=== PATIENT | male | born 1945 | race Two or more races ===

== ENCOUNTER 2019-04-09 11:50 | Observation (INO) | payer MEDICARE ==
[2019-04-09] MEDS ORDERED: NS 0.9% 1000 ML** 1,000 ML IV ONE ×2 (12:07→17:36)
--- OUTSIDE RECORDS SUMMARY | 2019-04-09 12:10 | XMS REPORT | Continuity of Care Document ---
:1945 External Reference #:[id number] Author Name Dianrda Hackett Care Team Providers Name Role Phone Katina Simmons MD Primary Care Physician Unavailable Payers Date Identification Numbers Payment Provider Subscriber Policy Number: [id number] Medicare Stephen Duffy PayID: [id number] [address] [place] [address] Policy Number: [id number] [facility] Stephen Duffy PayID: [id number] [address] [place] [address] Problems Active Problems Provider Date Spinal stenosis of lumbar region Marky Claudio M.D. Onset: 07/26/2015 History of polyp of colon Nahum Norton MD Onset: 01/09/2017 Note: 2 TAS Perera Diabetes mellitus Nahum Norton MD Onset: 03/19/2000 Note: as of 2019 no insulin Normocytic normochromic anemia Nahum Norton MD Onset: 03/19/1966 Note: stable at Hct 37 in 2019 Liver function tests abnormal Nahum Norton MD Onset: 03/19/2019 Note: alk phos first 118 June 2015 Family History Date Family Member(s) Observation Comments General Heart Disease General Diabetes General Hypertension General Seizure Disorder Father due to CAD () Mother Asthma Social History Type Date Description Comments Sex Unknown Marital Status Lives With 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 Smokeless Tobacco Never Used Smokeless Tobacco ETOH Use Denies alcohol use Tobacco Use Start: Unknown Patient has never smoked Recreational Drug Use Denies Drug Use Smoking Status Reviewed: 03/19/19 Patient has never smoked Exercise Type/Frequency Exercises regularly Allergies, Adverse Reactions, Alerts Active Allergies Reaction Severity Comments Date Lactose 09/28/2018 Pravachol Dizziness, Nausea 09/28/2018 Crestor myalgia 09/28/2018 Niacin Dizziness, Nausea 09/28/2018 Lipitor myalgia 09/28/2018 Inactive Allergies NKDA 08/18/2013 Medications Active Medications SIG Qnty Indications Ordering Date Provider Glucophage 1 po bid 180tabs Unknown 1000mg Tablets Synthroid 1 by mouth every Unknown 125mcg day Tablets Glipizide ER 1.5 tabs twice a Unknown 10mg day Tablets ER 24HR Fluocinonide apply topically Unknown 0.05% once daily as Cream needed Ramipril 1 by mouth every Unknown 2.5mg Capsules day Aleve 1-2 by mouth Unknown 220mg Capsules twice a day as needed Pravastatin Sodium take one tablet Unknown 10mg by mouth every Tablets other day History Medications Amitriptyline HCL 1 po qhs for 3 150tabs Marky Srivastava, 07/13/2015 - 10mg days then 2 qhs M.D. 09/21/2015 Tablets for 3 days then 3 qhs for 3 days then 4 qhs for 3 days then 5 qhs Prednisone 3 po qam for 1 21tabs Marky Srivastava, 06/25/2015 - 10mg Tablets day, then 2 qam M.D. 07/26/2015 for 1 day, then 1 qam for 2 days Solu-Medrol in 100cc ns 1000units Marky Srivastava, 06/23/2015 - 1000mg infuse over 1 M.D. 06/26/2015 Solution Rec hour.qd for 3 days ok to leave iv in per protocol Hydrocodone-Acetaminop 1 tab PO tid prn 21tabs Cheyanne Montalvo NP 2014 - hen pain 07/26/2015 7.5-325mg Tablets Ultracet 1 - 2 by mouth 30tabs Suzanne Butt 08/04/2014 - 37.5-325mg q4-6hr as needed M.D. 06/25/2015 Tablets pain Glyburide 1 po bid 60tabs Unknown - 2.5mg Tablets 10/05/2015 Synthroid 1 po qd Unknown - 137mcg Tablets 06/23/2015 Altace take 1 capsule Unknown - 2.5mg Capsules by mouth one Unknown time daily Multi For Him 50+ 1 by mouth every Unknown - day 01/29/2016 Tablets Vitamin B-12 1 by mouth every Unknown - 1000mcg day 08/14/2015 Tablets Sub Co Q-10 1 cap po daily Unknown - 200mg Capsules 09/21/2015 Vitamin D3 Maximum 1 by mouth 5 Unknown - Strength days per week 08/14/2015 5000Unit Capsules Humulin R inject 4-6 units Unknown - 100Unit/ML on sliding scale 09/28/2018 Solution prn Tylenol as needed Unknown - 325mg Tablets 09/28/2018 Vitamin B-12 1 by mouth every Unknown - 500mcg day Unknown Tablets Sub Vitamin D3 1 by mouth every Unknown - 1000mg day 11/03/2009 Capsules Vital Signs Date Vital Result Comment 03/19/2019 10:12am Height 69.25 inches 5'9.25" Weight 148.00 lb Heart Rate 92 /min BP Systolic 116 mmHg BP Diastolic 74 mmHg O2 % BldC Oximetry 98 % BMI (Body Mass Index) 21.7 kg/m2 10/02/2018 9:54am Height 69.25 inches 5'9.25" Weight 151.00 lb Heart Rate 88 /min BP Systolic 120 mmHg BP Diastolic 84 mmHg Respiratory Rate 16 /min Body Temperature 96.4 F BMI (Body Mass Index) 22.1 kg/m2 09/29/2018 3:49pm Height 69.25 inches 5'9.25" Weight 152.00 lb Heart Rate 72 /min BP Systolic Sitting 122 mmHg BP Diastolic Sitting 78 mmHg Respiratory Rate 16 /min BMI (Body Mass Index) 22.3 kg/m2 01/31/2016 11:06am Height 69.5 inches 5'9.50" Heart Rate 84 /min BP Systolic Sitting 124 mmHg BP Diastolic Sitting 72 mmHg Respiratory Rate 16 /min 10/05/2015 10:04am Height 69.5 inches 5'9.50" Weight 158.00 lb Heart Rate 72 /min BP Systolic Sitting 126 mmHg BP Diastolic Sitting 60 mmHg Pain Level 0 BMI (Body Mass Index) 23.0 kg/m2 09/22/2015 12:13pm Height 69.5 inches 5'9.50" Heart Rate 80 /min BP Systolic Sitting 108 mmHg BP Diastolic Sitting 72 mmHg Respiratory Rate 16 /min 08/17/2015 1:20pm Height 69.5 inches 5'9.50" Weight 158.00 lb Heart Rate 66 /min BP Systolic Sitting 122 mmHg BP Diastolic Sitting 70 mmHg Pain Level 0 BMI (Body Mass Index) 23.0 kg/m2 08/15/2015 1:40pm Height 69.5 inches 5'9.50" Weight 158.00 lb Heart Rate 72 /min BP Systolic Sitting 132 mmHg BP Diastolic Sitting 88 mmHg Respiratory Rate 14 /min BMI (Body Mass Index) 23.0 kg/m2 07/26/2015 2:25pm Height 69.5 inches 5'9.50" Weight 160.00 lb Heart Rate 78 /min BP Systolic Sitting 126 mmHg BP Diastolic Sitting 80 mmHg Pain Level 3 R hip to foot BMI (Body Mass Index) 23.3 kg/m2 06/26/2015 9:54am Height 69.5 inches 5'9.50" Weight 155.00 lb Heart Rate 80 /min BP Systolic Sitting 120 mmHg BP Diastolic Sitting 72 mmHg Respiratory Rate 16 /min BMI (Body Mass Index) 22.6 kg/m2 06/23/2015 8:13am Height 69.5 inches 5'9.50" Weight 155.00 lb Heart Rate 80 /min BP Systolic Sitting 120 mmHg BP Diastolic Sitting 70 mmHg Respiratory Rate 17 /min BMI (Body Mass Index) 22.6 kg/m2 08/04/2014 8:03am Height 69.5 inches 5'9.50" Weight 155.00 lb Heart Rate 90 /min BP Systolic 135 mmHg BP Diastolic 80 mmHg BMI (Body Mass Index) 22.6 kg/m2 08/18/2013 10:08am Weight 152.00 lb Heart Rate 76 /min BP Systolic Sitting 136 mmHg BP Diastolic Sitting 84 mmHg Respiratory Rate 12 /min Results Test Date Facility Test Result H/L Range Note Laboratory test 03/21/20 [facility] Hel[place] Negative Negative 1 finding [address] [place] [address] Antigen- [phone] Stool Laboratory test 06/23/20 [facility] Point of 189 mg/dL High 74 -106 [address] [place] [address] [place] [address] [phone] Laboratory test 06/23/20 [facility] Lyme Disease Negative N Negative [address] [place] [address] [place] [address] [phone] Protein 06/23/20 [facility] Total 8.1 g/dL Abnormal 6.3 - 7.9 Electrophoresis [address] [place] [address] Protein(Pep) [place] [address] [phone] Albumin 3.7 g/dL N 3.4-4.7 Alpha-1 Globulin 0.3 g/dL N 0.1-0.3 Alpha-2 Globulin 1.0 g/dL N 0.6-1.0 Beta Globulin 1.1 g/dL N 0.7-1.2 Gamma Globulin 2.0 g/dL Abnormal 0.6-1.6 Albumin/Globulin Ratio 0.82 N Impression See Comment N 4 Laboratory test 06/23/2015 [facility] Vitamin B12 1243 pg/mL High 180-914 5 finding [address] [place] [address] [phone] Erythrocyte Sed Rate 53 mm/Hr High 0-40 Comp Metabolic Panel 06/23/2015 [facility] Sodium 133 mmol/L N 133-[address] [place] [address] [phone] Potassium 5.1 mmol/L High 3.5-5.0 Chloride 98 mmol/L Low 101-111 Co2 Carbon Dioxide 29 mmol/L N 22-32 Anion Gap 6 mmol/L N 2-11 Glucose 156 mg/dL High 70-100 Blood Urea Nitrogen 23 mg/dL N 6-24 Creatinine 0.95 mg/dL N 0.67-1.17 BUN/Creatinine Ratio 24.2 High 8-20 Calcium 9.7 mg/dL N 8.6-10.3 Total Protein 7.7 g/dL N 6.4-8.9 Albumin 4.3 g/dL N 3.2-5.2 Globulin 3.4 g/dL N 2-4 Albumin/Globulin Ratio 1.3 N 1-3 Total Bilirubin 0.30 mg/dL N 0.2-1.0 Alkaline Phosphatase 118 U/L High 34-104 Alt 41 U/L N 7-52 Ast 37 U/L N 13-39 Egfr Non- 78.6 N >60 Egfr 101.1 N >60 6 Surgical Pathology 08/19/2014 [facility] S RUN DATE: [address] 08/23/ <[place] [address] NOTE> [phone] Basic Metabolic 08/14/2013 [facility] Sodium 136 mmol/L 133- [address] [place] [address] [phone] Potassium 4.1 mmol/L 3.5-5.0 Chloride 100 mmol/L Low 101-111 Co2 Carbon Dioxide 30.0 mmol/L 22-32 Anion Gap 6.0 mmol/L 2-11 Glucose 101 mg/dL High 70-100 Blood Urea Nitrogen 19 mg/dL 6-24 Creatinine 0.90 mg/dL 0.50-1.40 BUN/Creatinine Ratio 21.1 High 8-20 Calcium 9.8 mg/dL 8.1-9.9 Egfr Non- 84.2 >60 Egfr 108.2 >60 8 Lipid Profile 08/14/2013 [facility] Triglycerides 99 mg/dL 40 -200 (Trig/Chol/HDL) [address] [place] [address] [phone] Cholesterol 213 mg/dL High Less than 200 HDL Cholesterol 43 mg/dL 40-60 9 Cholesterol/HDL Ratio 5.0 Average High 1-4.44 LDL Cholesterol 150.2 High Less Than 100 10 Laboratory test 08/14/2013 [facility] Creatine Kinase 149 U/L 0-[address] [place] [address] [phone] Hemoglobin A1c 6.8 % High Less than 6.0 11 Vitamin B12 431 pg/mL 180-914 TSH (Thyroid Stimulating Horm) 3.60 miu/mL 0.34-5.60 Lyme Disease Serology Negative Negative 12 Vitamin D 1,25-Dihydroxy 32 pg/mL 18-64 13 1 Test Performed by: [facility] [address] [place] [address] 2 Histology Technician: MEGAN GAMBLE 3 Serologic response to B. burgdorferi infection is not detected, but cannot rule out early infection during which low or undetectable antibody levels to B. burgdorferi may be present. If clinically indicated, a new serum specimen should be submitted in 7-14 days. Test Performed by: [facility] [place] [address] Clearing Tub Worker: Mark Figueroa II, M.D., Ph.D. 4 RESULT: Polyclonal hypergammaglobulinemia Test Performed by: [place] [address] Clearing Tub Worker: Mark Figueroa II, M.D., Ph.D. 5 Normal Range 180 to 914 Indeterminate Range 145 to 180 Deficient Range <145 6 Because ethnic data is not always readily available, this report includes an eGFR for both -Americans and non- Americans. The National Kidney Disease Education Program (NKDEP) does not endorse the use of the MDRD equation for patients that are not between the ages of 18 and 70, are , have extremes of body size, muscle mass, or nutritional status, or are non- or non-. According to the National Kidney Foundation, irrespective of diagnosis, the stage of the disease is based on the level of kidney function: Stage Description GFR(mL/min/1.73 m(2)) 1 Kidney damage with normal or decreased GFR 90 2 Kidney damage with mild decrease in GFR 60-89 3 Moderate decrease in GFR 30-59 4 Severe decrease in GFR 15-29 5 Kidney failure <15 (or dialysis) 7 RUN DATE: 08/23/14 [facility] LAB LIVE PAGE 1 RUN TIME: [address] [place] [address] Specimen Inquiry Name: STEPHEN DUFFY : [address]: Suzanne Butt MD Acct: [id number] Unit: [id number] AGE: 68 Location: [facility] Re08/19/14 SEX: M Status: REG SD SPEC: [id number] ANGIE: 08/19/14- SUBM DR: Suzanne Butt MD REQ: [id number] RECD: 08/19/14 STATUS: SOUT _ ORDERED: S-100, LEVEL IV FINAL DIAGNOSIS Right index finger mass, excision: Neurofibroma. COMMENTS: An immunohistochemical stain for S100 was performed with appropriate controls and supports the above rendered diagnosis. PRE-OPERATIVE DIAGNOSIS Right index finger mass. GROSS DESCRIPTION The specimen is received in formalin labeled Stephen Duffy, Right Index Finger Mass, and consists of a 1.1 x 0.5 x 0.4 cm. padilla-white rubbery, irregular to ovoid portion of soft tissue. Submitted entirely, one cassette. Signed (signature on file) Mario Veliz MD 1332 END OF REPORT * ML=Testing performed at Main Lab DEPARTMENT OF PATHOLOGY, [address] [place] [address] Mario Veliz M.D. Director [facility] # [id number] 8 Because ethnic data is not always readily available, this report includes an eGFR for both -Americans and non- Americans. The National Kidney Disease Education Program (NKDEP) does not endorse the use of the MDRD equation for patients that are not between the ages of 18 and 70, are , have extremes of body size, muscle mass, or nutritional status, or are non- or non-. According to the National Kidney Foundation, irrespective of diagnosis, the stage of the disease is based on the level of kidney function: Stage Description GFR(mL/min/1.73 m(2)) 1 Kidney damage with normal or decreased GFR 90 2 Kidney damage with mild decrease in GFR 60-89 3 Moderate decrease in GFR 30-59 4 Severe decrease in GFR 15-29 5 Kidney failure <15 (or dialysis) 9 HDL Interpretation: Undesirable: High Risk: Less than 40 mg/dL Desirable: Low Risk: Greater than 60 mg/dL 10 LDL Interpretation: Low Risk Optimal Level: LDL Less than 100 mg/dL Near or Above Optimal: LDL 100-129 mg/dL Borderline High Risk: LDL 130-159 mg/dL High Risk: LDL 160-189 mg/dL Very High Risk: LDL Greater than 189 mg/dL 11 Therapeutic target for the treatment of diabetes Mellitus patients is <7% HBA1C, and in selective patients <6.0%.Please refer to [place] [employer] Diabetic care guidelines for further information. 12 Serologic response to B. burgdorferi infection is not detected, but cannot rule out early infection during which low or undetectable antibody levels to B. burgdorferi may be present. If clinically indicated, a new serum specimen should be submitted in 7-14 days. Test Performed by: [place] [address] Clearing Tub Worker: Steven Strong III, M.D. 13 Test Performed by: [address] [address] Clearing Tub Worker: Steven Strong III, M.D. Procedures Date Code Description Status 01/09/2017 54653869 Colonoscopy Completed 08/19/2014 92379 Excision Tendon Sheath Ganglion /Or Joint Capsule Hand Completed Or Finger 08/19/2014 07106 Excision Tumor,Soft Tissue Of Hand Or Finger Subq Completed 06/19/2012 32457 ECHO Stress Test Incl Perf Contiuous ekg Monitoring Completed W/Phys Superv 01/31/2006 33434 ECHO/Stress Completed 01/31/2006 22647 ECHO/Stress Completed 01/31/2006 10950 Stress Test Completed Encounters Type Date Location Provider Dx Diagnosis Office Visit 03/19/2019 [facility] Gastroenterology Nahum Calderon R10.13 Epigastric pain 10:00a MD Errol Z86.010 Personal history of colonic polyps R94.5 Abnormal results of liver function studies Office Visit 10/02/2018 10:00a Surgical Robbie Ferrer, R10.31 Right lower [facility], FACS quadrant pain Office Visit 09/29/2018 3:30p [facility] Gloria Osborn M54.16 Radiculopathy, [facility] S[facility]astava M.D. lumbar region M48.061 Spinal stenosis, lumbar region without neurogenic pradeep Office Visit 01/31/2016 [facility] Gloria Osborn M54.16 Radiculopathy, 10:45a [facility] S[facility]ast[facility] M.D. lumbar region Office Visit 10/05/2015 Neurosurgery Marky M48.06 Spinal stenosis, 10:00a [facility] Claudio M.D. lumbar region Office Visit 09/22/2015 [facility] Gloria Osborn M54.16 Radiculopathy, 12:00p [facility] Srivastava M.D. lumbar region Office Visit 08/17/2015 Neurosurgery Marky M48.06 Spinal stenosis, 1:15p [facility] Claudio M.D. lumbar region Office Visit 08/15/2015 Lars Osborn M48.06 Spinal stenosis, 1:30p [facility] Srivastava M.D. lumbar region M54.16 Radiculopathy, lumbar region Office Visit 07/26/2015 Neurosurgery Marky Claudio M48.06 Spinal stenosis , 2:30p [facility] lumbar region Office Visit 06/26/2015 Lars Osborn 724.4 Neuritis Or 9:00a [facility] Srivastava M.D. Radiculitis Thoracic Or Lumbosacral Unspec 357.2 Polyneuropathy In Diabetes Office Visit 06/23/2015 8:00a Lars Osborn 724.4 Neuritis Or [facility] S[facility]ast[facility] M.D. 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 Shouldr Connective & Soft Tissue 727.03 Trigger Finger Acquired Office Visit 08/18/2013 [facility] Marky Osborn 346.10 Migraine Common W/O 10:00a Neurologic Светлана Srivastava Intractable W/O Status [facility] Migrainosus Office Visit 06/19/2012 [facility] ECHO 794.31 Electrocardiogram 8:15a Cardiology Schedule (ECG) (EKG) Abnormal 786.09 Dyspnea & Respiratory Abnormalities Other Plan of Treatment Future Appointment(s):04/05/2019 9:00 am - Nurse Visit IC at [facility]04/02/2019 9:30 am - Nurse Visit IC at [facility]2018 1:30 pm - Marky Srivastava M.D. at [facility]03/19 - Nahum Norton, MDR10.13 Epigastric painZ86.010 Personal history of colonic hsgkfpR62.5 Abnormal results of liver function studies
--- OUTSIDE RECORDS SUMMARY | 2019-04-09 12:10 | XMS REPORT | Continuity of Care Document ---
:1945 External Reference #:[id number] Author Name Shreya Bailey Care Team Providers Name Role Phone Katina Simmons MD Primary Care Physician Unavailable Payers Date Identification Numbers Payment Provider Subscriber Policy Number: [id number] Medicare Stephen Duffy PayID: [id number] [address] [place] [address] Policy Number: [id number] [facility] Stephen Duffy PayID: [id number] [address] [place] [address] Problems Active Problems Provider Date Difficulty breathing [facility] Schedule Onset: 06/19/2012 Electrocardiogram abnormal [facility] Schedule Onset: 06/19/2012 Spinal stenosis of lumbar region Marky Claudio M.D. 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 [...] Test Result H/L Range Note Laboratory test 06/23/20 [facility] Point of 189 mg/dL High 74 -106 1 finding [address] [place] [address] [phone] Laboratory test 06/23/20 [facility] Lyme Disease Negative N Negative 2 finding [address] [place] [address] [phone] Protein 06/23/20 [facility] Total 8.1 g/dL Abnormal 6.3 - 7.9 Electrophoresis [address] Protein(Pep) [place], [place] [id number] [phone] Albumin 3.7 g/dL N 3.4-4.7 Alpha-1 Globulin 0.3 g/dL N 0.1-0.3 Alpha-2 Globulin 1.0 g/dL N 0.6-1.0 Beta Globulin 1.1 g/dL N 0.7-1.2 Gamma Globulin 2.0 g/dL Abnormal 0.6-1.6 Albumin/Globulin Ratio 0.82 N Impression See Comment N 3 Laboratory test 06/23/2015 [facility] Vitamin B12 1243 pg/mL High 180-[address] [place], [place] [id number] [phone] Erythrocyte Sed Rate 53 mm/Hr High 0-40 Comp Metabolic Panel 06/23/2015 [facility] Sodium 133 mmol/L N 133-145 [address] [place] [address] [phone] Potassium 5.1 mmol/L High 3.5-5.0 Chloride 98 [...] 78.6 N >60 Egfr 101.1 N >60 5 Surgical Pathology 08/19/2014 [facility] S RUN DATE: [address] DRIVE 08/23/ <[place] [address] NOTE> [phone] Basic Metabolic 08/14/2013 [facility] Sodium 136 mmol/L 133- 145 Panel [address] [place] [address] [phone] Potassium 4.1 mmol/L 3.5-5.0 Chloride 100 mmol/L Low 101-111 Co2 Carbon Dioxide 30.0 mmol/L 22-32 Anion Gap 6.0 mmol/L 2-11 Glucose 101 mg/dL High 70-100 Blood Urea Nitrogen 19 mg/dL 6-24 Creatinine 0.90 mg/dL 0.50-1.40 BUN/Creatinine Ratio 21.1 High 8-20 Calcium 9.8 mg/dL 8.1-9.9 Egfr Non- 84.2 >60 Egfr 108.2 >60 7 Lipid Profile 08/14/2013 [facility] Triglycerides 99 mg/dL 40 -200 (Trig/Chol/HDL) [address] [place] [address] [phone] Cholesterol 213 mg/dL High Less than 200 HDL Cholesterol 43 mg/dL 40-60 8 Cholesterol/HDL Ratio 5.0 Average High 1-4.44 LDL Cholesterol 150.2 High Less Than 100 9 Laboratory test 08/14/2013 [facility] Creatine Kinase 149 U/L 0-200 finding [address] [place] [address] [phone] Hemoglobin A1c 6.8 % High Less than 6.0 10 Vitamin B12 431 pg/mL 180-914 TSH (Thyroid Stimulating Horm) 3.60 miu/mL 0.34-5.60 Lyme Disease Serology Negative Negative 11 Vitamin D 1,25-Dihydroxy 32 pg/mL 18-64 12 1 Installation And Service Technician: MEGAN GAMBLE 2 Serologic response to B. burgdorferi infection is not detected, but cannot rule out early infection during which low or undetectable antibody levels to B. burgdorferi may be present. If clinically indicated, a new serum specimen should be submitted in 7-14 days. Test Performed by: [facility] [address] [place] [address] Account Development Manager: Mark Figueroa II, M.D., Ph.D. 3 RESULT: Polyclonal hypergammaglobulinemia Test Performed by: [address] [address] Account Development Manager: Mark Figueroa II, M.D., Ph.D. 4 Normal Range 180 to 914 Indeterminate Range 145 to 180 Deficient Range <145 5 Because ethnic data is not always readily [...] 15-29 5 Kidney failure <15 (or dialysis) 6 RUN DATE: 08/23/14 [facility] LAB LIVE PAGE 1 RUN TIME: [address] [place] [address] Specimen Inquiry Name: DUFFYSTEPHEN Leilani : [address]: Suzanne Butt MD Acct: [id number] Unit: [id number] AGE: 68 Location: [facility] Re08/19/14 SEX: M Status: REG [facility] SPEC: [id number] ANGIE: 08/19/14- SUBM DR: Suzanne Butt MD REQ: [id number] RECD: [id number]/19/14-8498 STATUS: SOUT _ ORDERED: S-100, LEVEL IV [...] performed at Main Lab DEPARTMENT OF PATHOLOGY, [address] [place] [address] Mario Veliz M.D. Director [facility] # [id number] 7 Because ethnic data is not always readily [...] 15-29 5 Kidney failure <15 (or dialysis) 8 HDL Interpretation: Undesirable: High Risk: Less than 40 mg/dL Desirable: Low Risk: Greater than 60 mg/dL 9 LDL Interpretation: Low Risk Optimal Level: LDL Less than 100 mg/dL Near or Above Optimal: LDL 100-129 mg/dL Borderline High Risk: LDL 130-159 mg/dL High Risk: LDL 160-189 mg/dL Very High Risk: LDL Greater than 189 mg/dL 10 Therapeutic target for the treatment of diabetes Mellitus patients is <7% HBA1C, and in selective patients <6.0%.Please refer to [place] [employer] Diabetic care guidelines for further information. 11 Serologic response to B. burgdorferi infection is not detected, but cannot rule out early infection during which low or undetectable antibody levels to B. burgdorferi may be present. If clinically indicated, a new serum specimen should be submitted in 7-14 days. Test Performed by: [place] [address] Account Development Manager: Steven Strong III, M.D. 12 Test Performed by: [place] [address] Account Development Manager: Steven Strong III, M.D. Procedures Date Code Description Status 08/19/2014 74124 Excision Tendon Sheath Ganglion /Or Joint Capsule Hand Or Completed Finger 08/19/2014 63781 Excision Tumor,Soft Tissue Of Hand Or Finger Subq Completed 06/19/2012 42518 ECHO Stress Test Incl Perf Contiuous ekg Monitoring W/Phys Completed Superv 01/31/2006 78247 ECHO/Stress Completed 01/31/2006 58178 ECHO/Stress Completed 01/31/2006 40625 Stress Test Completed Encounters Type Date Location Provider Dx Diagnosis Office Visit 10/02/2018 [facility] Robbie Ferrer, R10.31 Right lower 10:00a Of [facility] ALDRICH, FACS quadrant pain Office Visit 09/29/2018 [facility]born M54.16 Radiculopathy, 3:30p Services Of [facility] Miguel Srivastava M.D. lumbar region M48.061 Spinal stenosis, lumbar region without neurogenic pradeep Office Visit 01/31/2016 [facility] M54.16 Radiculopathy, 10:45a Services Of [facility] Srivastava M.D. lumbar region Office Visit 10/05/2015 [facility] Marky M48.06 Spinal stenosis, 10:00a Services Of [facility] Claudio M.D. lumbar region Office Visit 09/22/2015 [facility] Marky Osborn M54.16 Radiculopathy, 12:00p Services Of [facility] Srivastava M.D. lumbar region Office Visit 08/17/2015 Neurosurgery Marky M48.06 Spinal stenosis, 1:15p Services Of [facility] Claudio M.D. lumbar region Office Visit 08/15/2015 [facility] Marky Osborn M48.06 Spinal stenosis, 1:30p Services Of José Miguel Srivastava M.D. lumbar region M54.16 Radiculopathy, lumbar region Office Visit 07/26/2015 Neurosurgery Marky Claudio M48.06 Spinal stenosis , 2:30p Services Of [facility] Sotomayor lumbar region Office Visit 06/26/2015 [facility] 724.4 Neuritis Or 9:00a Services Of [facility] Miguel Srivastava M.D. Radiculitis Thoracic Or Lumbosacral Unspec 357.2 Polyneuropathy In Diabetes Office Visit 06/23/2015 8:00a [facility] Marky Osborn 724.4 Neuritis Or Services Of José Miguel Srivastava M.D. Radiculitis Thoracic Or Lumbosacral Unspec 356.8 Neuropathy Other Spec Idiopathic Peripheral 357.2 Polyneuropathy In Diabetes Office Visit 08/04/2014 8:00a Orthopedic Suzanne Butt, 215.2 Benign Neoplasm Services Of [facility] Soft Tissue 727.03 Trigger Finger Acquired Office Visit 08/18/2013 [facility] Osborn 346.10 Migraine Common W/O 10:00a Neurologic [facility] Srivastava Intractable W/O Status Services Of [facility] Migrainosus Office Visit 06/19/2012 [facility] ECHO 794.31 Electrocardiogram 8:15a Cardiology Schedule (ECG) (EKG) Abnormal 786.09 Dyspnea & Respiratory Abnormalities Other Plan of Treatment Future Appointment(s):11/02/2019 1:30 pm - Marky Srivastava M.D. at [facility]03/19/2019 - Nahum Norton, MDR10.13 Epigastric painZ86.010 Personal history of colonic polyps
[2019-04-09] MEDS ORDERED: Nitroglycerin TAB 0.4 MG* 0.4 MG TAB SL ONE (12:25)
--- NOTE | 2019-04-09 12:30 | ED ---
HPI Chest Pain - HPI Summary HPI Summary: Pt is a 73 y/o M presenting to the ED with a chief complaint of chest pain initially onset 1630 last night, 04/09/19, in the mid-chest area that radiated up to the front of his neck, described as sharp. He also reports shortness of breath, and chest pain with deep breaths. He saw Dr. Norton this morning who recommended coming into the ED for cardiac workup. He denies hx of MA, blood clot, and recent travel. He is a diabetic and drinks alcohol rarely. - History of Current Complaint Time Seen by Provider: 04/09/19 12:07 Hx Obtained From: Patient Onset/Duration: Started Hours Ago, Still Present Timing: Intermittent, Lasting Hours Initial Severity: Moderate Current Severity: Moderate Chest Pain Location: Mid Sternal Chest Pain Radiates: Yes Chest Pain Radiates To:: Neck Character: Sharp/Stabbing Aggravating Factor(s): Deep Breaths Alleviating Factor(s): Nothing Associated Signs and Symptoms: Positive: Chest Pain, Shortness of Breath - Allergy/Home Medications Allergies/Adverse Reactions: Allergies Allergy/AdvReac Type Severity Reaction Status Date / Time rosuvastatin [From Crestor] Allergy Severe See Comment Verified 04/09/19 12:30 niacin Allergy Dizziness Verified 04/09/19 12:30 pravastatin Allergy Muscle Ache Verified 04/09/19 12:30 Home Medications: Home Medications Levothyroxine TAB* [Synthroid TAB*] 125 mcg PO DAILY 04/09/19 [History Confirmed 04/09/19] Multivitamins/Minerals TAB* [Theragran/minerals TAB*] 1 tab PO DAILY 04/09/19 [ History Confirmed 04/09/19] Pravastatin (NF) [Pravachol (NF)] 10 mg PO EVERY OTHER DAY 04/09/19 [History Confirmed 04/09/19] Ramipril CAP* [Altace CAP*] 2.5 mg PO DAILY 04/09/19 [History Confirmed 04/09/19 ] metFORMIN* [Glucophage 1000 MG TAB *] 1,000 mg PO BID 04/09/19 [History Confirmed 04/09/19] PMH/Surg Hx/FS Hx/Imm Hx Previously Healthy: Yes Endocrine/Hematology History: Reports: Hx Diabetes, Hx Thyroid Disease - HYPO Denies: Other Endocrine/Hematological Disorders - blood clot Cardiovascular History: Reports: Hx Hypertension - MILD- ON ALTACE Denies: Hx Myocardial Infarction, Hx Pacemaker/ICD Respiratory History: Denies: Hx Asthma History: Denies: Hx Renal Disease Sensory History: Reports: Hx Contacts or Glasses Denies: Hx Hearing Aid Opthamlomology History: Reports: Hx Contacts or Glasses Neurological History: Reports: Hx Headaches - OCC Psychiatric History: Denies: Hx Panic Disorder - Surgical History Surgery Procedure, Year, and Place: CYST REMOVED; Hx Anesthesia Reactions: No Infectious Disease History: Denies: Traveled Outside the [place] in Last 30 Days - Family History Known Family History: Negative: Renal Disease - Social History Alcohol Use: Rare Hx Substance Use: No Substance Use Type: Reports: None Hx Tobacco Use: No Smoking Status (MU): Never Smoked Tobacco Review of Systems Positive: Chest Pain Positive: Shortness Of Breath All Other Systems Reviewed And Are Negative: Yes Physical Exam - Summary Physical Exam Summary: GENERAL: Patient is a well-developed and nourished M who is lying comfortable in the stretcher. Patient is not in any acute respiratory distress. HEAD AND FACE: Normocephalic EYES: PERRLA, EOMI x 2. EARS: Hearing grossly intact. MOUTH: Oropharynx within normal limits. NECK: Supple, trachea is midline, no adenopathy, no JVD, no carotid bruit. CHEST: Symmetric, no tenderness at palpation LUNGS: Clear to auscultation bilaterally. No wheezing or crackles. CVS: Regular rate and rhythm, S1 and S2 present, no murmurs or gallops appreciated. ABDOMEN: Soft, non-tender. Bowel sounds are normal. No abnormal abdominal pulsations. EXTREMITIES: Full ROM in all major joints, no edema, no cyanosis or clubbing. NEURO: Alert and oriented x 3. No acute neurological deficits. Speech is normal and follows commands. SKIN: Dry and warm Triage Information Reviewed: Yes Vital Signs Reviewed: Yes Diagnostics - Laboratory Result Diagrams: 04/09/19 12:48 04/09/19 12:48 Lab Statement: Any lab studies that have been ordered have been reviewed, and results considered in the medical decision making process. - Radiology CXR Radiology Interpretation Completed By: Radiologist Summary of Radiographic Findings: No active cardiopulmonary disease. ED physician has reviewed this report. - CT CTA Chest/Thorax CT Interpretation Completed By: Radiologist Summary of CT Findings: 1. No pulmonary arterial filling defect to suggest PE. 2. 0.3cm nodule of the R upper lobe, the recommendations for f/u and management of an incidentally detected pulmonary nodule <6mm in size in a patient w/o hx of malignancy include no follow-up for a low risk patient or optional follow-up CT in 12 months for a high risk patient. 3. Coronary artery disease. ED physician has reviewed this report. - EKG 1220 Cardiac Rate: Tachycardia - 106bpm EKG Rhythm: Sinus Tachycardia ST Segment: Non-Specific Ectopy: None Summary of EKG Findings: EKG at 1220 shows sinus tachycardia at 106bpm with a prolonged NM interval and no ST elevation. Re-Evaluation - Re-Evaluation 1st re-eval Re-Evaluation Time: 12:54 Change: Improved Comment: Per RN, the pt had relief with the nitroglycerin given. He states the tightness in his neck was relieved. 2nd re-eval Re-Evaluation Time: 14:42 Change: Unchanged Comment: I discussed the results of the CTA chest/thorax with the patient and his , and informed him that I would like to admit him. I answered their questions, and he is stable and agreeable with this plan. Chest Pain Course/Dx - Course Course Of Treatment: Pt is a 73 y/o M presenting to the ED with a chief complaint of chest pain initially onset 1630 last night, 04/09/19, in the mid- chest area that radiated up to the front of his neck, described as sharp. He also reports shortness of breath, and chest pain with deep breaths. He denies hx of MA, blood clot, and recent travel. He is a diabetic and drinks alcohol rarely. EKG at 1220 shows sinus tachycardia at 106bpm with a prolonged NM interval and no ST elevation. CXR shows no active cardiopulmonary disease. Pt s hematology shows RBC of 3.75, Hgb of 11.7, and Hct of 35. His coagulation results show an INR of 1.10 and D-Dimer of 413. His chemistry shows a Sodium level of 133, Chloride of 100, BUN/Creatinine ratio of 24.4, Magnesium of 1.5, Alkaline Phosphate of 136, CRP high sens of 142, Globulin of 4.2, and Albumin/ Globulin ratio of 0.9. His troponin is 0.00 and lactic acid is 1.2. CTA Chest/ Thorax shows: 1. No pulmonary arterial filling defect to suggest PE. 2. 0.3cm nodule of the R upper lobe, the recommendations for f/u and management of an incidentally detected pulmonary nodule <6mm in size in a patient w/o hx of malignancy include no follow-up for a low risk patient or optional follow-up CT in 12 months for a high risk patient. 3. Coronary artery disease. I discussed the incidental finding of nodule with patient, and advised admission. He is stable and agreeable with this plan. I spoke with Dr. Leone at 1440 who will be admitting the pt to [facility] with dx of chest pain and pulmonary nodule. - Diagnoses Provider Diagnoses: Chest pain, Pulmonary nodule Discharge - Sign-Out/Discharge Documenting (check all that apply): Patient Departure - Discharge Plan Condition: Stable Disposition: ADMITTED TO [facility] Referrals: Katina Simmons MD [Primary Care Provider] - - Billing Disposition and Condition Condition: STABLE Disposition: Admitted to [facility] - Attestation Statements Document Initiated by Scribe: Yes Documenting Scribe: Pam Davis Provider For Whom Roseannee is Documenting (Include Credential): Brant Killian MD. Scribe Attestation: I, Pam Davis, dorieibed for Brant Killian MD. on 04/09/19 at 1743. Scribe Documentation Reviewed: Yes Provider Attestation: The documentation as recorded by the dorieibePam accurately reflects the service I personally performed and the decisions made by me, Georges Killian MD. Status of Scribe Document: Viewed Consult Consult: 1310 - I spoke with Dr. Leone who will be accepting the pt to [facility] with dx including chest pain and pulmonary nodule.
[2019-04-09 13:12] LABS: Activated Partial Thrombo Time 32.3 seconds (26.0-38.0); INR 1.1 (0.82-1.09)
[2019-04-09 13:15] LABS: ABS Basophils 0.1 10^3/ul (0-0.2); ABS Eosinophils 0.2 10^3/ul (0-0.6); ABS Lymphocytes 1.5 10^3/ul (1.0-4.8); ABS Monocytes 1.2 10^3/ul (0-0.8); ABS Neutrophils 5.4 10^3/ul (1.5-7.7); Eosinophil % 1.9 %; Hematocrit 35 % (42-52); Hemoglobin 11.7 g/dL (14.0-18.0); Lymphocyte % 18.2 %; Mean Corpuscular HGB Conc 33 g/dL (31-36); Mean Corpuscular Hemoglobin 31 pg (27-31); Mean Corpuscular Volume 94 fL (80-94); Mean Platelet Volume 9.6 fL (7.4-10.4); Platelet Count 173 10^3/uL (150-450); Red Blood Count 3.75 10^6 /uL (4.18-5.48); Red Cell Distribution Width 14 % (10-15); White Blood Count 8.3 10^3/uL (3.5-10.8)
[2019-04-09 13:43] LABS: Albumin 3.7 g/dL (3.2-5.2); Albumin/Globulin Ratio 0.9 (1-3); BUN/Creatinine Ratio 24.4 (8-20); Calcium 9.5 mg/dL (8.6-10.3); EGFR African American 105.5 (>60); EGFR Non-African American 87.2 (>60); Globulin 4.2 g/dL (2-4); Magnesium 1.5 mg/dL (1.9-2.7); Potassium 4.6 mmol/L (3.5-5.0); Total Bilirubin 0.7 mg/dL (0.2-1.0); Total Protein 7.9 g/dL (6.4-8.9)
[2019-04-09] MEDS ORDERED: Iodixanol* (CONTRAST) 320 MG/ML 100 ML SDV IV ONE (14:03)
[2019-04-09] MEDS ORDERED: Aspirin 81 mg CHEW TAB* 81 MG TAB.CHEW PO ONE (14:41)
[2019-04-09 14:47] LABS: Urine Appearance Cloudy; Urine Bilirubin Negative (Negative); Urine Blood Negative (Negative); Urine Color Yellow; Urine Glucose 1+(50 mg/dL) (Negative); Urine Ketones Negative (Negative); Urine Nitrite Negative (Negative); Urine Protein Negative (Negative); Urine Specific Gravity 1.013 (1.010-1.030); Urine Urobilinogen Negative (Negative)
[2019-04-09] MEDS ORDERED: Magnesium Sulfate 2 GM IV* 2 GM/50 ML BAG IVPB ONE (15:32)
[2019-04-09] MEDS ORDERED: Acetaminophen TAB* 325 MG PO PRN (16:08)
[2019-04-09] MEDS ORDERED: Enoxaparin(*) 40 MG/0.4 ML SYR SUBCUT SCH (17:00)
[2019-04-09] MEDS ORDERED: Dextrose 50% Syringe 50 ML* 25 GM/50 ML SYRINGE IV PUSH PRN ×2 (17:12→20:09)
[2019-04-09] MEDS ORDERED: Famotidine TAB* 20 MG PO PRN (17:19)
[2019-04-09] MEDS ORDERED: Insulin LISPRO* 1 UNITS UNIT SUBCUT SCH (18:00)
--- NOTE | 2019-04-09 19:49 | HP ---
CC: Dr. Katina Simmons * HISTORY AND PHYSICAL: DATE OF ADMISSION: 04/09/19 PRIMARY CARE PHYSICIAN: Katina Simmons MD HEALTHCARE PROXY: Rashida Villasenor (), phone number is [phone]. CODE STATUS: Full code. CHIEF COMPLAINT: One day of chest pain radiating to neck. HISTORY OF PRESENT ILLNESS: Mr. Villasenor is a 73-year-old man with longstanding diabetes, hypertension, hypothyroidism, and recent history of reflux who is presenting from Dr. Norton's office for chest pain for 1 day. He reports that he was in his usual state of health until approximately 4:30 p.m. on day prior to admission when he began experiencing a substernal chest pain that was sharp and radiated to his neck. It was nonexertional, but worse on taking a deep breath. Over course of the evening and night, it progressed from a sharp pain to a squeezing pain, and while he was in his bed, he noted that it was worse on moving around in his bed. This chest pain was associated with shortness of breath, although the patient denied cough, diaphoresis. When the patient's chest pain started yesterday, he notes that it did improve with kefir, Tums, and Tylenol. He does report a recent history of epigastric burning for the last 4 weeks, which is why he had an appointment with Dr. Norton on morning of presentation. He does think he had a subjective fever on day prior to presentation, although he did not measure his temperature at home. He denies recent weight loss, nausea, vomiting, constipation, diarrhea, abdominal pain, dysuria, or focal weakness, numbness or tingling. Of note, the patient had been following with Dr. Ragland in the past and was recently referred to see Dr. Ragland again for known history of first-degree heart block. He recently had a Holter monitor study, but does not know results. He has also been following with Dr. Norton for history of NAFLD. In the emergency room, he was noted to have known first-degree heart block on EKG. He was given nitroglycerin and experienced improvement in his chest pain. He was also loaded with aspirin. Given the pleuritic nature of his chest pain with elevated D-dimer, a CTPE was ordered which was unremarkable except for new 0.3 cm pulmonary nodule. The CT did note coronary artery disease. The hospitalist service was consulted to admit for myocardial infarction rule out. PAST MEDICAL HISTORY: 1. Diabetes diagnosed in the early , last A1c 7.8%. 2. Hypothyroidism, also diagnosed in the . 3. Hypertension. 4. Proctalgia fugax. 5. 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 6. Excision of right fifth digit finger mass with injection for trigger finger. MEDICATIONS: Home medication list: 1. Metformin 1 g twice a day. 2. Levothyroxine 125 mcg daily. 3. Glipizide 15 mg twice a day. 4. Pravastatin 10 mg every other day. 5. Ramipril 2.5 mg daily. 6. Multivitamin daily. ALLERGIES: No known drug allergies. The patient does report myopathies with higher doses of statins as well as LFT abnormalities. He also has experienced flushing with niacin. FAMILY HISTORY: Two of the patient's brothers have diabetes, one of his brothers at the age of 73 from myocardial infarction. 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 He is a never smoker. He has rare alcohol use. Never illicit drugs. He lives with his who is also a retired helpdesk specialist. REVIEW OF SYSTEMS: A complete 10-point review of systems was performed and pertinent positives and negatives are listed in the HPI. PHYSICAL EXAMINATION GENERAL: He is a well-appearing man, in no acute distress, interactive and pleasant. VITAL SIGNS: Afebrile, heart rate 90s, respiratory rate 22, blood pressure 115/ 70, SaO2 98% on room air. HEENT: Moist mucous membranes. OP clear. NECK: No JVD. Full range of motion. Intact without pain. Supple. LUNGS: Clear to auscultation bilaterally. HEART: Regular rate and rhythm. No murmurs, gallops, rubs. ABDOMEN: Soft, nontender, nondistended. No hepatomegaly. EXTREMITIES: Warm and well perfused without evidence of edema. SKIN: Warm and dry. DIAGNOSTIC STUDIES/LAB DATA: Hemoglobin 11.7, normocytic at baseline. INR 1.1. Sodium 133, near baseline. Magnesium 1.5. CRP 75. BNP 142. UA clear. Chest x-ray with no active cardiopulmonary disease. Chest CTA with no pulmonary arterial filling defect to suggest PE. A 0.3 cm nodule in the right upper lobe. Recommendations for followup and management of incidentally detected pulmonary nodule with a followup in 12 months. Coronary artery disease. EKG with sinus tachycardia, 112, CA interval prolonged to 217, repolarization abnormality of V2 through 4, T wave flattening of III and aVF, unchanged from prior as noted in clinic earlier this year. ASSESSMENT AND PLAN: Mr. Villasenor is a 73-year-old man with diabetes, hypertension, hypothyroidism, and family history of cardiac disease who presents with atypical chest pain radiating to his jaw that was initially pleuritic, then positional, and improved with Tums and kefir. 1. Chest pain. Coronary artery disease is high on differential given significant risk factors. The patient will be ruled out for myocardial infarction. Initial 2 troponins are negative, we will order a third for tonight. The patient understands that TTE and stress test cannot happen until Friday. We will monitor on telemetry overnight, recheck an A1c and TSH, and continue to monitor symptoms closely. Pulmonary embolism has been ruled out. Of note, symptoms have improved with nitroglycerin, but also with GI medications. 2. Diabetes. We will hold home metformin and glipizide and continue insulin sliding scale. 3. Hypertension. Continue home ramipril 2.5 mg daily. 4. Primary prevention coronary artery disease. Continue home pravastatin every other day. Initiate aspirin 81 mg. 5. Hypothyroidism. Continue home levothyroxine 125 mcg daily. Check TSH. 6. Reflux. We will trial the patient on H2 lyndsey as needed. 7. DVT prophylaxis. Initiate Lovenox 40 mg subcu daily. 8. Full code. TIME SPENT: Approximately 60 minutes spent on admission of this patient, more than half of which was spent at bedside for interview and exam. [id number]/CPS #: [id number] [facility]
[2019-04-09 20:42] LABS: TSH (Thyroid Stimulating Horm) 0.35 mcIU/mL (0.34-5.60)
[2019-04-09 20:53] LABS: Folate 11.41 ng/mL (>3.99)
[2019-04-09] MEDS: Insulin LISPRO* 1 UNITS UNIT SUBCUT SCH (21:01)
[2019-04-10 03:54] VITALS: BP 121/79
[2019-04-10 05:24] LABS: Hematocrit 32 % (42-52); Hemoglobin 10.7 g/dL (14.0-18.0); Mean Corpuscular HGB Conc 33 g/dL (31-36); Mean Corpuscular Hemoglobin 31 pg (27-31); Mean Corpuscular Volume 93 fL (80-94); Mean Platelet Volume 9.5 fL (7.4-10.4); Platelet Count 164 10^3/uL (150-450); Red Blood Count 3.45 10^6 /uL (4.18-5.48); Red Cell Distribution Width 14 % (10-15); White Blood Count 6.9 10^3/uL (3.5-10.8)
[2019-04-10 05:43] LABS: Calcium 8.9 mg/dL (8.6-10.3); EGFR African American 106.9 (>60); EGFR Non-African American 88.4 (>60); Magnesium 1.8 mg/dL (1.9-2.7); Potassium 4.2 mmol/L (3.5-5.0)
[2019-04-10] MEDS ORDERED: Levothyroxine TAB* 125 MCG TAB PO SCH (06:00)
[2019-04-10] MEDS: Insulin LISPRO* 1 UNITS UNIT SUBCUT SCH ×2 (08:46→12:33)
[2019-04-10] MEDS ORDERED: CMCS:Pravastatin (NF) 20 MG TAB PO SCH (09:00)
[2019-04-10] MEDS ORDERED: Ramipril CAP* 2.5 MG PO SCH (09:00)
[2019-04-10] MEDS ORDERED: Aspirin EC TAB* 81 MG TAB.EC PO SCH (09:00)
[2019-04-10] MEDS ORDERED: Multivitamins/Minerals TAB PO SCH (09:00)
[2019-04-10] MEDS ORDERED: Magnesium Sulfate 1 GM IV* 1 GM/100 ML BAG IV ONE (09:06)
--- NOTE | 2019-04-10 19:01 | DS ---
CC: Dr. Katina Simmons * DISCHARGE SUMMARY: DATE OF ADMISSION: 04/09/19 DATE OF DISCHARGE: 04/10/19 PRIMARY CARE PHYSICIAN: Dr. Katina Simmons. PRIMARY DIAGNOSIS: Chest pain, unknown etiology. SECONDARY DIAGNOSES: 1. Diabetes. 2. Hypertension. 3. Hypothyroidism. 4. Gastroesophageal reflux disease. DISCHARGE MEDICATIONS: 1. Levothyroxine 100 mcg daily. 2. Famotidine 20 mg twice a day as needed for reflux. 3. Aspirin 81 mg daily. 4. Pravastatin 10 mg every other day. 5. Ramipril 2.5 mg daily. 6. Metformin 1 g twice a day. 7. Glipizide 50 mg twice a day. 8. Multivitamin. HISTORY OF PRESENT ILLNESS: Mr. Villasenor is a 73-year-old man with diabetes, hypertension, hypothyroidism and recent diagnosis of GERD, who presented as a recommendation from Dr. Norton's office for 1 day of chest pain. He reports being in his usual state of good health until approximately 4:30PM on day prior to admission, when he began experiencing substernal chest pain that was sharp and radiated to his neck. The pain was nonexertional, but was initially worse on taking a deep breath. Over the course of the evening and night, it progressed from sharp quality to a squeezing pain. While the patient was in his bed, he noted that it was worse on moving, especially if he moved his neck. This chest pain was associated with shortness of breath, although the patient denied cough, diaphoresis, paroxysmal nocturnal dyspnea. The chest pain that began yesterday was improved with kefir, Tums, and Tylenol. He reports a history of epigastric burning for the last 4 weeks which was the reason for his followup appointment with Dr. Norton on the morning of presentation. He does report a subjective fever one day prior to presentation, although he did not measure his temperature at home. He denies recent weight loss, nausea, vomiting , constipation, diarrhea, abdominal pain, dysuria, or focal weakness, numbness or tingling. The patient reports that he recently had a Holter monitor given prolonged KS interval seen on an outpatient EKG. He does not know the results of the Holter monitor yet, but reports he has followup scheduled in a couple of weeks with Dr. Ragland. HOSPITAL COURSE: In the emergency room, the patient was noted to have stable first degree heart block. He was given nitroglycerin and experienced improvement in his chest pain. He was also given aspirin 324. Given the pleuritic nature of his chest pain with elevated D-dimer, a CT_PE was ordered, which was unremarkable except for a new 0.3 cm pulmonary nodule and coronary artery disease noted on scan. The hospitalist service was consulted to admit for further cardiac workup. The patient's KAYDEN score was 2. It was discussed with the patient that he was at elevated risk for cardiac event, but given that it was Friday evening, he would have to wait until Friday morning for stress test and echocardiogram. The patient was amenable to staying overnight for further telemetry monitoring and troponins, but by next morning given normal troponins and no events on telemetry, the patient preferred to return home. 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 An outpatient nuclear stress test was ordered for him to receive early next week and he notes that he already has followup appointment scheduled with Dr. Ragland. On day of discharge, the patient denied any episodes of chest pain in the hospital. For this reason, he did not ask for his H2 lyndsey as needed medication, so we discussed trialing these medications as an outpatient if he experiences epigastric pain, as the patient did note that his presenting symptoms were improved with Tums and yogurt. The patient reports he thinks sleeping at an incline in the hospital is what helped with his presenting symptoms. A complete 10-point review of systems was performed and the patient had denied all symptoms. Of note, also while hospitalized, the patient was noted to have occasional tachycardia which he reports is his baseline. It was also noted that his TSH was low normal at 0.35. Given that goal for the elderly is likely upper limits of normal or mildly elevated, we discussed with the patient that he should reduce his outpatient dose of levothyroxine. The patient reports that he had heard this in the past and would be interested in lowering his levothyroxine dose with close followup with his primary care physician. PHYSICAL EXAM: The patient is afebrile, heart rate 104, blood pressure 121/79, respiratory rate 16, oxygen saturation 98% on room air. In general, he is a pleasant, well-appearing man, in no acute distress. Alert and interactive. HEENT: OP clear. Moist mucous membranes. Neck: No evidence of of JVD. Lungs : Clear to auscultation bilaterally. Heart: Tachycardic. Regular rhythm. No murmurs, gallops, or rubs. Abdomen: Soft, nontender, and nondistended. No organomegaly. Normoactive bowel sounds. No epigastric tenderness. Extremities : Warm and well perfused. No edema. Neuro: A and O x3. No focal weakness. Gait: Normal. PERTINENT STUDIES AND LABS: Hemoglobin 10.7 normocytic. Hgb A1c 7.6. Troponins 0 x3. CRP 75. BNP 142. Vitamin B12 287. Folate 11.4. TSH 0.35. EKG, sinus tachycardia 112, KS interval 217. DISCHARGE PLAN: The patient aware that we prefer he await inpatient stress test , but he prefers to return home knowing that he would be able to seek urgent care at the immediate recurrence of symptoms, and also has close followup scheduled with his outpatient providers. To expedite his outpatient cardiac workup, a nuclear stress test has been ordered. He was extensively educated on return precautions, which include, but are not limited to recurrence of chest pain or new symptoms of diaphoresis or shortness of breath. His medications are to be continued as above with notable change of decrease in levothyroxine dose, so he will need a repeat TSH level check near the end of May. He was also initiated on aspirin 81 mg daily. He was also given a prescription for famotidine to see if this improves his recent history of epigastric symptoms. He is to resume healthy diet of unprocessed foods with activity as tolerated. He should have a repeat Chest CT in 12 months for monitoring of newly discovered , incidental pulmonary nodule DISPOSITION: Home. CONDITION: Good. TIME SPENT: Approximately 60 minutes was spent on discharge of this patient, more than half of which was spent on care and coordination at bedside for interview and exam. [id number]/CPS #: [id number] EVETTE
== END 2019-04-10 13:30 | disposition home or self-care (01) ==
LOC: ED 11:50 → INTOOBSV 17:04 → MEDTELE 17:04
PROVIDERS: ADMIT Internal Medicine; ATTEND Internal Medicine
DX: R07.9 Chest pain, unspecified (principal); E11.9 Type 2 diabetes mellitus without complications; I10 Essential (primary) hypertension; E03.9 Hypothyroidism, unspecified; K21.9 Gastro-esophageal reflux disease without esophagitis; Z79.82 Long term (current) use of aspirin; K59.4 Anal spasm
CPT/HCPCS: 36415; 71045; 71275; 80048; 80053; 81003; 82607; 82746; 83036; 83605; 83735; 83880; 84443; 84484; 85025; 85027; 85379; 85610; 85730; 86141; 93005; 96365; 96372; 96375; 99284; A9270-GY; G0378; J1650; J3475; Q9967

== ENCOUNTER 2019-04-25 18:35 | Observation (INO) | payer MEDICARE ==
--- OUTSIDE RECORDS SUMMARY | 2019-04-25 18:41 | XMS REPORT | Continuity of Care Document ---
:1945 External Reference #:[id number] Author Name Shreya Bailey Care Team Providers Name Role Phone Katina Simmons MD Primary Care Physician Unavailable Payers Date Identification Numbers Payment Provider Subscriber Policy Number: [id number] Medicare Stephen Duffy PayID: [id number] [address] [place] [address] Policy Number: [id number] [facility] Stephen Duffy PayID: [id number] [address] [place] [address] Problems Active Problems Provider Date Spinal stenosis [...] Unknown Marital Status Lives With Occupation Physician artist's manager Occupation Retired Tobacco Use Start: Unknown Never Smoked Cigarettes Smoking Status Reviewed: 04/21/19 Never Smoked Cigarettes Smokeless Tobacco Never Used Smokeless Tobacco ETOH Use Denies alcohol use Tobacco Use Start: Unknown Patient has never smoked Recreational Drug Use Denies Drug Use Exercise Type/Frequency Exercises regularly Allergies, Adverse Reactions, Alerts Active Allergies Reaction Severity Comments Date Lactose 09/28/2018 Pravachol Dizziness, Nausea 09/28/2018 Crestor myalgia 09/28/2018 Niacin Dizziness, Nausea 09/28/2018 Lipitor myalgia 09/28/2018 Inactive Allergies NKDA 08/18/2013 Medications Active Medications SIG Qnty Indications Ordering Date Provider Glucophage 1 po bid 180tabs Unknown 1000mg Tablets Synthroid 1 by mouth every Unknown 100mcg day Tablets Glipizide ER 1.5 tabs twice a Unknown 10mg day Tablets ER 24HR Fluocinonide apply topically Unknown 0.05% once daily as Cream needed Ramipril 1 by mouth every Unknown 2.5mg Capsules day Aleve 1-2 by mouth Unknown 220mg Capsules twice a day as needed Pravastatin Sodium take one tablet Unknown 10mg by mouth every Tablets other day Famotidine 1 by mouth twice Unknown 20mg Tablets daily Aspirin 81 Low Dose 1 by mouth every Unknown day 81mg Chewtabs Multivitamins 1 by mouth every Unknown Capsules day History Medications Amitriptyline HCL 1 po [...] day, then 1 qam for 2 days Hydrocodone-Acetaminop 1 tab PO tid prn 21tabs Cheyanne Montalvo NP 2014 - hen pain 07/26/2015 7.5-325mg Tablets Solu-Medrol in 100cc ns 1000units Marky Srivastava, 06/23/2015 - 1000mg infuse over 1 M.D. 06/26/2015 Solution Rec hour.qd for 3 days ok to leave iv in per protocol Ultracet 1 - 2 by mouth 30tabs [...] Capsules Vital Signs Date Vital Result Comment 04/21/2019 3:20pm Weight 149.00 lb Heart Rate 88 /min BP Systolic 89 mmHg BP Diastolic 61 mmHg O2 % BldC Oximetry 99 % 04/09/2019 10:25am Height 69.25 inches 5'9.25" Weight 149.00 lb Heart Rate 111 /min BP Systolic 141 mmHg BP Diastolic 90 mmHg O2 % BldC Oximetry 100 % BMI (Body Mass Index) 21.8 kg/m2 03/19/2019 10:12am Height 69.25 inches 5'9.25" Weight [...] Result H/L Range Note Laboratory test 03/21/20 [facility] Helico Negative Negative [address] [facility] [place] [address] Antigen- [phone] Stool Laboratory test 06/23/20 [facility] Point of 189 mg/dL High 74 -[address] [facility] Care Glucose [place], [place] [id number] [phone] Laboratory test 06/23/20 [facility] Lyme Disease Negative N Negative [address] [facility] Serology [place], [place] [id number] [phone] Protein 06/23/20 [facility] Total 8.1 g/dL Abnormal 6.3 - 7.[address] [facility] Protein(Pep) [place], [place] [id number] [phone] Albumin 3.7 g/dL N 3.4-4.7 Alpha-1 Globulin 0.3 g/dL N 0.1-0.3 Alpha-2 Globulin 1.0 g/dL N 0.6-1.0 Beta Globulin 1.1 g/dL N 0.7-1.2 Gamma Globulin 2.0 g/dL Abnormal 0.6-1.6 Albumin/Globulin Ratio 0.82 N Impression See Comment N 4 Laboratory test 06/23/2015 [facility] Vitamin B12 1243 pg/mL High 180-914 5 finding [address] [place], [place] [id number] [phone] Erythrocyte Sed Rate 53 mm/Hr High 0-40 Comp Metabolic Panel 06/23/2015 [facility] Sodium 133 mmol/L N 133-145 [address] [place] [address] [phone] Potassium 5.1 mmol/L High 3.5-5.0 Chloride 98 [...] 101.1 N >60 6 Surgical Pathology 08/19/2014 [facility] S RUN DATE: [address] 08/23/ <[place] [address] NOTE> [phone] Basic Metabolic 08/14/2013 [facility] Sodium 136 mmol/L 133- [address] [place] [address] [phone] Potassium 4.1 mmol/L 3.5-5.0 Chloride 100 mmol/L Low 101-111 Co2 Carbon Dioxide 30.0 mmol/L 22-32 Anion Gap 6.0 mmol/L 2-11 Glucose 101 mg/dL High 70-100 Blood Urea Nitrogen 19 mg/dL 6-24 Creatinine 0.90 mg/dL 0.50-1.40 BUN/Creatinine Ratio 21.1 High 8-20 Calcium 9.8 mg/dL 8.1-9.9 Egfr Non- 84.2 >60 Egfr 108.2 >60 8 Lipid Profile 08/14/2013 [facility] Triglycerides 99 mg/dL 40 -200 (Trig/Chol/HDL) [address] [place] [address] [phone] Cholesterol 213 mg/dL High Less than 200 HDL Cholesterol 43 mg/dL 40-60 9 Cholesterol/HDL Ratio 5.0 Average High 1-4.44 LDL Cholesterol 150.2 High Less Than 100 10 Laboratory test 08/14/2013 [facility] Creatine Kinase 149 U/L 0-200 finding [address] [place] [address] [phone] Hemoglobin A1c 6.8 % High Less than 6.0 11 Vitamin B12 431 pg/mL 180-914 TSH (Thyroid Stimulating Horm) 3.60 miu/mL 0.34-5.60 Lyme Disease Serology Negative Negative 12 Vitamin D 1,25-Dihydroxy 32 pg/mL 18-64 13 1 Test Performed by: [place] [address] 2 Service Station Helper: [id number] GAMBLE 3 Serologic response to B. burgdorferi infection is not detected, but cannot rule out early infection during which low or undetectable antibody levels to B. burgdorferi may be present. If clinically indicated, a new serum specimen should be submitted in 7-14 days. Test Performed by: [place] [address] Sap Bi Developer: Mark Figueroa II, M.D., Ph.D. 4 RESULT: Polyclonal hypergammaglobulinemia Test Performed by: [place] [address] Sap Bi Developer: Mark Figueroa II, M.D., Ph.D. 5 Normal [...] <15 (or dialysis) 7 RUN DATE: 08/23/14 [facility] LAB LIVE PAGE 1 RUN TIME: [address] [place] [address] Specimen Inquiry Name: STEPHEN DUFFY : [address]: Suzanne Butt MD Acct: [id number] Unit: [id number] AGE: 68 Location: [facility] Re08/19/14 SEX: M Status: REG [facility] SPEC: [id number] ANGIE: 08/19/14- SUBM DR: Suzanne Butt MD REQ: [id number] RECD: 08/19/14 STATUS: SOUT _ ORDERED: S-100, LEVEL IV FINAL DIAGNOSIS Right index finger mass, excision: Neurofibroma. COMMENTS: An immunohistochemical stain for S100 was performed with appropriate controls and supports the above rendered diagnosis. PRE-OPERATIVE DIAGNOSIS Right index finger mass. GROSS DESCRIPTION The specimen is received in formalin labeled Stephen Lockwood Hamilton, Right Index Finger Mass, and consists of a 1.1 x 0.5 x 0.4 cm. padilla-white rubbery, irregular to ovoid portion of soft tissue. Submitted entirely, one cassette. Signed (signature on file) Mario Veliz MD 1332 END OF REPORT * ML=Testing performed at Main Lab DEPARTMENT OF PATHOLOGY, [address] [place] [address] Mario Veliz M.D. Director [facility] # [id number] 8 Because ethnic data is not always [...] and in selective patients <6.0%.Please refer to [place] [employer] Diabetic care guidelines for further information. 12 Serologic response to B. burgdorferi infection is not detected, but cannot rule out early infection during which low or undetectable antibody levels to B. burgdorferi may be present. If clinically indicated, a new serum specimen should be submitted in 7-14 days. Test Performed by: [address] [place] [address] Sap Bi Developer: Steven Strong III, M.D. 13 Test Performed by: [facility] - [address] [address] Sap Bi Developer: Steven Strong III, M.D. Procedures Date Code Description Status 04/11/2019 20175 Holter Monitor Review (24 hr)dr review & interp only Completed 04/02/2019 99028 ECG Monitor/Recording W/Visual Superimposition Scanning Completed 01/09/2017 82284950 Colonoscopy Completed 08/19/2014 56171 Excision Tendon Sheath Ganglion /Or Joint Capsule Hand Completed Or Finger 08/19/2014 14924 Excision Tumor,Soft Tissue Of Hand Or Finger Subq Completed 06/19/2012 82802 ECHO Stress Test Incl Perf Contiuous ekg Monitoring Completed W/Phys Superv 01/31/2006 46625 ECHO/Stress Completed 01/31/2006 52457 ECHO/Stress Completed 01/31/2006 55063 Stress Test Completed Encounters Type Date Location Provider Dx Diagnosis Office Visit 04/10/2019 [facility], Holly Leone R07.9 Chest pain, 11:26a Hospitalists unspecified Office Visit 04/09/2019 [facility], Holly Leone R07.9 Chest pain, 11:25a Hospitalists unspecified Office Visit 04/09/2019 [facility] Gastroenterology Nahum Calderon R07.9 Chest pain, 10:15a MD Errol unspecified I44.0 Atrioventricular block, first degree R10.13 Epigastric pain Office Visit 03/19/2019 [facility] Gastroenterology Nahum Calderon R10.13 Epigastric pain 10:00a MD Errol Z86.010 Personal history of colonic polyps R94.5 Abnormal results of liver function studies Office Visit 10/02/2018 10:00a Surgical oRbbie Ferrer, R10.31 Right lower [facility], [facility] quadrant pain Office Visit 09/29/2018 3:30p [facility] Osborn M54.16 Radiculopathy, [facility] Srivastava M.D. lumbar region M48.061 Spinal stenosis, lumbar region without neurogenic pradeep Office Visit 01/31/2016 [facility] Gloria Osborn M54.16 Radiculopathy, 10:45a [facility] Srivastava M.D. lumbar region Office Visit 10/05/2015 Neurosurgery Marky M48.06 Spinal stenosis, 10:00a [facility] Claudio M.D. lumbar region Office Visit 09/22/2015 [facility] Gloria Osborn M54.16 Radiculopathy, 12:00p [facility] Srivastava M.D. lumbar region Office Visit 08/17/2015 Neurosurgery Marky M48.06 Spinal stenosis, 1:15p [facility] Claudio M.D. lumbar region Office Visit 08/15/2015 [facility] Gloria Osborn M48.06 Spinal stenosis, 1:30p [facility] Srivastava M.D. lumbar region M54.16 Radiculopathy, lumbar region Office Visit 07/26/2015 Neurosurgery Marky Claudio M48.06 Spinal stenosis , 2:30p [facility] Sotomayor lumbar region Office Visit 06/26/2015 [facility] Gloria Osborn 724.4 Neuritis Or 9:00a [facility] Srivastava M.D. Radiculitis Thoracic Or Lumbosacral Unspec 357.2 Polyneuropathy In Diabetes Office Visit 06/23/2015 8:00a [facility] Gloria Osborn 724.4 Neuritis Or [facility] Srivastava M.D. 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 Shouldr Connective & Soft Tissue 727.03 Trigger Finger Acquired Office Visit 08/18/2013 [facility] Marky Osborn 346.10 Migraine Common W/O 10:00a Gloria Srivastava M.D. Intractable W/O Status [facility] Migrainosus Office Visit 06/19/2012 [facility] ECHO 794.31 Electrocardiogram 8:15a Cardiology Schedule (ECG) (EKG) Abnormal 786.09 Dyspnea & Respiratory Abnormalities Other Plan of Treatment Future Appointment(s):05/04/2019 9:40 am - Lucian Ragland M.D. at [facility]/31/2019 1:30 pm - Marky Srivastava M.D. at [facility]04/21/2019 - Nahum Norton MDE05.80 Other thyrotoxicosis without thyrotoxic crisis or stormNew Orders:EGD, Ordered: 04/21/19Comments: Risk and benefits of the procedure were discussed with patient.Follow up: Friday 04/27 at 1:30 - he will skip his AM glipizide - take all other medsR00.0 Tachycardia, unspecifiedComments:Risk and benefits of the procedure were discussed with patient.Follow up:Friday 04/27 at 1:30 - he will skip his AM glipizide - take all other medsR10.13 Epigastric painComments:Risk and benefits of the procedure were discussed with patient.Follow up:Friday 04/27 at 1:30 - he will skip his AM glipizide - take all other meds
[2019-04-25 19:34] LABS: INR 1.09 (0.82-1.09)
[2019-04-25 19:35] LABS: ABS Eosinophils 0.3 10^3/ul (0-0.6); ABS Lymphocytes 1.5 10^3/ul (1.0-4.8); ABS Monocytes 0.9 10^3/ul (0-0.8); ABS Neutrophils 4.5 10^3/ul (1.5-7.7); Eosinophil % 3.9 %; Hematocrit 33 % (42-52); Hemoglobin 11.4 g/dL (14.0-18.0); Lymphocyte % 20.3 %; Mean Corpuscular HGB Conc 34 g/dL (31-36); Mean Corpuscular Hemoglobin 32 pg (27-31); Mean Corpuscular Volume 93 fL (80-94); Mean Platelet Volume 9.6 fL (7.4-10.4); Nucleated Red Blood Cells % 0.1; Platelet Count 216 10^3/uL (150-450); Red Blood Count 3.56 10^6 /uL (4.18-5.48); Red Cell Distribution Width 14 % (10-15); White Blood Count 7.2 10^3/uL (3.5-10.8)
[2019-04-25 19:45] LABS: ALT 31 U/L (7-52); AST 31 U/L (13-39); Albumin 3.6 g/dL (3.2-5.2); Albumin/Globulin Ratio 0.9 (1-3); Alkaline Phosphatase 148 U/L (34-104); Anion Gap 5 mmol/L (2-11); Blood Urea Nitrogen 18 mg/dL (6-24); CO2 Carbon Dioxide 26 mmol/L (22-32); Calcium 9.7 mg/dL (8.6-10.3); Chloride 100 mmol/L (101-111); EGFR African American 111.4 (>60); EGFR Non-African American 92.1 (>60); Glucose 207 mg/dL (70-100); Potassium 4.2 mmol/L (3.5-5.0); Sodium 131 mmol/L (135-145); Total Protein 7.6 g/dL (6.4-8.9)
[2019-04-25 19:48] LABS: Troponin I 0.04 ng/mL (<0.04)
--- NOTE | 2019-04-25 20:06 | ED ---
HPI Chest Pain - HPI Summary HPI Summary: Patient is a 73 y/o M presenting to ED via EMS with with complaints of left anterior chest pain. Chest pain onset today around 1700 while he was on a treadmill at the [facility]. He states that he was going around 1.7-2.0 MPH and that he went for a bit longer than he typically does. During the last 10-15 minutes, patient experienced onset of chest pain. He rates the pain at the time 5-6/10 in intensity. Radiation of pain is denied. He stopped exercising and went home to rest. The pain lessened in intensity but was still present. The patient's called EMS and also gave him 0.3 mg of her nitro. Patient reports some delayed relief after nitro administration. Patient is prescribed ASA and has been taking it, with the exception of today. However, EMS gave 4 baby ASA to patient. This is the second episode of chest pain within a month for the patient. He notes that previous chest pain was at epigastric area with radiation of pain to throat. He had a cardiac stress test around 04/12/19 which was normal. He denies having received angiogram and cardiac catheter in the past. PMHx of diabetes and thyroid disease is reported. In the room, he rates pain 1/10. Home medications and allergies are reviewed. - History of Current Complaint Chief Complaint: EDChestPainROMI Time Seen by Provider: 04/25/19 19:40 Hx Obtained From: Patient Onset/Duration: Started Hours Ago, Still Present Timing: Constant, Lasting Hours Initial Severity: Moderate Current Severity: Mild Pain Intensity: 1 Pain Scale Used: 0-10 Numeric Chest Pain Location: Left Anterior Chest Pain Radiates: No Aggravating Factor(s): Exertion Alleviating Factor(s): Medication, NTG 123, EMS Tx Associated Signs and Symptoms: Positive: Chest Pain. Negative: Fever - on vitals, temp 99 F - Allergy/Home Medications Allergies/Adverse Reactions: Allergies Allergy/AdvReac Type Severity Reaction Status Date / Time atorvastatin [From Lipitor] Allergy Muscle Ache Verified 04/23/19 08:54 lactose Allergy GI Upset Verified 04/23/19 11:53 niacin Allergy Dizziness Verified 04/23/19 08:54 rosuvastatin [From Crestor] AdvReac Severe elevated Verified 04/23/19 08:54 LFT's pravastatin AdvReac Muscle Ache Verified 04/23/19 08:54 PMH/Surg Hx/FS Hx/Imm Hx Endocrine/Hematology History: Reports: Hx Diabetes, Hx Thyroid Disease - HYPO Denies: Other Endocrine/Hematological Disorders - blood clot Cardiovascular History: Reports: Hx Hypertension - MILD- ON ALTACE Denies: Hx Myocardial Infarction, Hx Pacemaker/ICD Respiratory History: Denies: Hx Asthma History: Denies: Hx Renal Disease Sensory History: Reports: Hx Contacts or Glasses Denies: Hx Hearing Aid Opthamlomology History: Reports: Hx Contacts or Glasses Neurological History: Reports: Hx Headaches - OCC Psychiatric History: Denies: Hx Panic Disorder - Surgical History Surgery Procedure, Year, and Place: CYST REMOVED; Hx Anesthesia Reactions: No Infectious Disease History: No Infectious Disease History: Denies: Traveled Outside the [place] in Last 30 Days - Family History Known Family History: Negative: Renal Disease - Social History Alcohol Use: None Hx Substance Use: No Substance Use Type: Reports: None Hx Tobacco Use: No Smoking Status (MU): Never Smoked Tobacco Review of Systems Negative: Fever - on vitals, temp is 99 F Positive: Chest Pain All Other Systems Reviewed And Are Negative: Yes Physical Exam - Summary Physical Exam Summary: VITAL SIGNS: Reviewed. GENERAL: Patient is a well-developed and nourished male who is lying comfortable in the stretcher. Patient is not in any acute respiratory distress. HEAD AND FACE: No signs of trauma. No ecchymosis, hematomas or skull depressions. No sinus tenderness. EYES: PERRLA, EOMI x 2, No injected conjunctiva, no nystagmus. EARS: Hearing grossly intact. Ear canals and tympanic membranes are within normal limits. MOUTH: Oropharynx within normal limits. NECK: Supple, trachea is midline, no adenopathy, no JVD, no carotid bruit, no c- spine tenderness, neck with full ROM CHEST: Symmetric, no tenderness at palpation LUNGS: Clear to auscultation bilaterally. No wheezing or crackles. CVS: Regular rate and rhythm, S1 and S2 present, no murmurs or gallops appreciated. ABDOMEN: Soft, non-tender. No signs of distention. No rebound no guarding, and no masses palpated. Bowel sounds are normal. EXTREMITIES: FROM in all major joints, no edema, no cyanosis or clubbing. NEURO: Alert and oriented x 3. No acute neurological deficits. Speech is normal and follows commands. SKIN: Dry and warm Triage Information Reviewed: Yes Vital Signs On Initial Exam: Initial Vitals Temp Pulse Resp BP Pulse Ox 99.0 F 97 17 126/82 98 04/25/19 18:41 04/25/19 18:41 04/25/19 18:41 04/25/19 18:41 04/25/19 18:41 Vital Signs Reviewed: Yes Diagnostics - Vital Signs Vital Signs Temp Pulse Resp BP Pulse Ox 04/25/19 18:41 99.0 F 97 20 126/82 98 - Laboratory Lab Results: Lab Results 04/25/19 04/25/19 04/25/19 Range/Units 19:20 19:20 19:20 WBC 7.2 (3.5-10.8) 10^3/uL RBC 3.56 L (4.18-5.48) 10^6 /uL Hgb 11.4 L (14.0-18.0) g/dL Hct 33 L (42-52) % MCV 93 (80-94) fL MCH 32 H (27-31) pg MCHC 34 (31-36) g/dL RDW 14 (10-15) % Plt Count 216 (150-450) 10^3/uL MPV 9.6 (7.4-10.4) fL Neut % (Auto) 63.2 % Lymph % (Auto) 20.3 % Gregory % (Auto) 12.1 % Eos % (Auto) 3.9 % Baso % (Auto) 0.5 % Absolute Neuts (auto) 4.5 (1.5-7.7) 10^3/ul Absolute Lymphs (auto) 1.5 (1.0-4.8) 10^3/ul Absolute Monos (auto) 0.9 H (0-0.8) 10^3/ul Absolute Eos (auto) 0.3 (0-0.6) 10^3/ul Absolute Basos (auto) 0.0 (0-0.2) 10^3/ul Absolute Nucleated RBC 0.0 10^3/ul Nucleated RBC % 0.1 INR (Anticoag Therapy) 1.09 (0.82-1.09) Sodium 131 L (135-145) mmol/L Potassium 4.2 (3.5-5.0) mmol/L Chloride 100 L (101-111) mmol/L Carbon Dioxide 26 (22-32) mmol/L Anion Gap 5 (2-11) mmol/L BUN 18 (6-24) mg/dL Creatinine 0.82 (0.67-1.17) mg/dL Est GFR ( Amer) 111.4 (>60) Est GFR (Non-Af Amer) 92.1 (>60) BUN/Creatinine Ratio 22.0 H (8-20) Glucose 207 H (70-100) mg/dL Calcium 9.7 (8.6-10.3) mg/dL Total Bilirubin 0.30 (0.2-1.0) mg/dL AST 31 (13-39) U/L ALT 31 (7-52) U/L Alkaline Phosphatase 148 H (34-104) U/L Troponin I Pending Total Protein 7.6 (6.4-8.9) g/dL Albumin 3.6 (3.2-5.2) g/dL Globulin 4.0 (2-4) g/dL Albumin/Globulin Ratio 0.9 L (1-3) Result Diagrams: 04/25/19 19:20 04/25/19 19:20 Lab Statement: Any lab studies that have been ordered have been reviewed, and results considered in the medical decision making process. - Radiology CXR Radiology Interpretation Completed By: ED Physician Summary of Radiographic Findings: NAD, pending official report. - EKG 7604 Cardiac Rate: NL - rate of 93 BPM EKG Rhythm: Sinus Rhythm Summary of EKG Findings: EKG showed sinus rhythm with rate of 93 BPM, first degree AV block, right axis deviation, poor R wave progression, no ischemic changes. Chest Pain Course/Dx - Course Course Of Treatment: Patient is a 73 y/o M presenting to ED via EMS with with complaints of left anterior chest pain. Chest pain onset today around 1700 while he was on a treadmill at the [facility]. He states that he was going around 1.7- 2.0 MPH and that he went for a bit longer than he typically does. During the last 10-15 minutes, patient experienced onset of chest pain. He rates the pain at the time 5-6/10 in intensity. Radiation of pain is denied. He stopped exercising and went home to rest. The pain lessened in intensity but was still present. The patient's called EMS and also gave him 0.3 mg of her nitro. Patient reports some delayed relief after nitro administration. Patient is prescribed ASA and has been taking it, with the exception of today. However, EMS gave 4 baby ASA to patient. This is the second episode of chest pain within a month for the patient. He notes that previous chest pain was at epigastric area with radiation of pain to throat. He had a cardiac stress test around which was normal. He denies having received angiogram and cardiac catheter in the past. PMHx of diabetes and thyroid disease is reported. In the room, he rates pain /10. Physical exam is unremarkable. Labs showed RBC 3.56, Hgb 11.3, Hct 33, MCH 32, absolute monos 0.9, potassium 131, chloride 100, BUN/creatinine ratio 22, glucose 207, alk phos 148, trop 0.04, albumin/globulin 0.9. CXR was NAD. EKG showed sinus rhythm with rate of 93 BPM, first degree AV block, right axis deviation, poor R wave progression, no ischemic changes. 2002 - Patient's case was discussed with Dr. Cox, Dr. Cox accepts for admission. Patient is agreeable with admission. - Diagnoses Provider Diagnoses: Chest pain - Provider Notifications Discussed Care Of Patient With: Maddy Cox Time Discussed With Above Provider: 20:03 Instructed by Provider To: Other - 2002 - Patient's case was discussed with Dr. Cox, Dr. Cox accepts for admission. Discharge - Sign-Out/Discharge Documenting (check all that apply): Patient Departure - admit Patient Received Moderate/Deep Sedation with Procedure: No - Discharge Plan Condition: Good Disposition: ADMITTED TO [facility] Referrals: Katina Simmons MD [Primary Care Provider] - - Attestation Statements Document Initiated by Scribe: Yes Documenting Scribe: NANCY HANSEN Provider For Whom Scribe is Documenting (Include Credential): PEDRO LOVELL MD Scribe Attestation: NANCY Vivas, scribed for PEDRO LOVELL MD on 04/25/19 at 2057. Status of Scribe Document: Ready
[2019-04-25] MEDS ORDERED: Acetaminophen TAB* 325 MG PO PRN (21:15)
[2019-04-25 22:17] LABS: Troponin I 0.48 ng/mL (<0.04)
[2019-04-25] MEDS ORDERED: Dextrose 50% Syringe 50 ML* 25 GM/50 ML SYRINGE IV PUSH PRN ×2 (22:28→22:49)
[2019-04-25] MEDS: Heparin VIAL(*) 5000 UNITS/ML VIAL (FIVE THOUSAND) SUBCUT SCH (22:39)
[2019-04-25] MEDS ORDERED: Ticagrelor* 90 MG TAB PO ONE (22:39)
[2019-04-25] MEDS ORDERED: Insulin LISPRO* 1 UNITS UNIT SUBCUT ONE (22:49)
[2019-04-25] MEDS: Metoprolol Tartrate TAB* 25 MG PO SCH (23:15)
--- NOTE | 2019-04-25 23:43 | HP ---
CC: Dr. Simmons.* HISTORY AND PHYSICAL: DATE OF ADMISSION: 04/25/19 PRIMARY CARE PHYSICIAN: Dr. Simmons. ATTENDING PHYSICIAN: Dr. Maddy Cox * (dictation provided by Belkis Finley NP ). CHIEF COMPLAINT: Chest pain on exertion. HISTORY OF PRESENT ILLNESS: Mr. Villasenor is a 73-year-old male with a past medical history of diabetes, hypertension, hyperlipidemia, and hypothyroidism, who presents to the hospital with concern for chest pain with exertion. Mr. Villasenor was just admitted to our hospital from 04/09/19 to 04/10/19 for chest pain. During that admission he had a negative CTA of the chest. He had troponins, all of which were 0.00. His EKG showed no episodes of ischemia. The patient was discharged to home to follow up closely for outpatient nuclear stress test, which was accomplished on 04/13/19. The exercise nuclear medicine stress test showed a negative maximal adequate stress with low risk nuclear images and no definite fixed or reversible perfusion defect. There was some suspicion that perhaps Mr. Villasenor's symptoms are related to GERD. He did follow up with Dr. Norton in the office and the plan was to have an upper endoscopy completed on Friday of this coming week. The patient states he was doing well until today when he was at the gym and developed chest discomfort. He states he was walking relatively slowly on the treadmill, at about 1.5 miles per hour. He had been on the treadmill for about an hour, which is per his routine, when he began developing left-sided chest pain that radiated into his neck. The maximum pain was about 6/10. He stopped immediately and went home. At home, his pain had gone down to about 4/10. He rested and took a nitroglycerin, and despite nitroglycerin he continued to have discomfort and nitroglycerin did not affect the pain at all. He decided to come to the emergency room for evaluation. At this point, in the emergency room, his pain is 1/10. The chest pain is described as a squeezing discomfort and it feels like "something sitting on my chest." There is no shortness of breath. There is no nausea, vomiting, diarrhea or abdominal pain. In the emergency room Mr. Villasenor had labs which showed troponin of 0.04. As noted previously, his troponin was 0.00 x3 on the previous hospitalization. His chest x- ray showed no acute process. EKG showed sinus rhythm, with no evidence of ischemia. PAST MEDICAL HISTORY: 1. Type 2 diabetes, non-insulin dependent. 2. Hypertension. 3. Hypothyroidism. 4. GERD. 5. Hyperlipidemia. OUTPATIENT MEDICATIONS: 1. Ramipril 2.5 mg p.o. daily. 2. Pravastatin 10 mg p.o. every other day. 3. Naproxen p.r.n. 4. Multivitamin with mineral 1 tab p.o. daily. 5. Lidex cream 0.05% topically daily p.r.n. 6. Metformin 1000 mg p.o. b.i.d. 7. Glipizide 15 mg p.o. b.i.d. 8. Levothyroxine 100 mcg p.o. daily. 9. Aspirin 81 mg p.o. daily. The patient discontinued Pepcid as it made him nauseous. ALLERGIES: ATORVASTATIN, LACTOSE, NIACIN, ROSUVASTATIN, PRAVASTATIN. FAMILY HISTORY: The patient reports his mother at 78 related to asthma. Dad at 89 related to heart attack. SOCIAL HISTORY: No reported alcohol, tobacco or drug use. Patient lives with his . She is the healthcare proxy. REVIEW OF SYSTEMS: A 14-point review of systems was completed with Mr. Villasenor and all those not mentioned above were negative. PHYSICAL EXAMINATION GENERAL: Mr. Villasenor is lying in the bed. He is in no acute distress. VITAL SIGNS: Temperature 99.0, pulse rate 90, respiratory rate 16, O2 saturation 98% on room air, blood pressure 128/82. LUNGS: Clear to auscultation bilaterally, with no accessory muscle use and good aeration. HEART: S1 and S2. No murmur, rub or gallop, and regular. ABDOMEN: Soft, nontender. Bowel sounds are positive x4. EXTREMITIES: No cyanosis or edema. NEUROLOGIC: He is alert. He is oriented x3. He moves all extremities equally. There is no facial asymmetry or focal weakness. Extraocular movements are intact. SKIN: Intact. DIAGNOSTIC STUDIES/LAB DATA: Sodium 131, potassium 4.2, chloride 100, serum bicarbonate 26, BUN 18, creatinine 0.82, glucose 207. Troponin 0.04. INR 1.09. WBC 7.2, hemoglobin 11.4, hematocrit 33, platelet count 216. EKG shows sinus rhythm with no evidence of ischemia. ASSESSMENT AND PLAN: Mr. Villasenor is a 73-year-old male with past medical history of diabetes, hypertension, and hyperlipidemia, who has just had a negative exercise nuclear medicine stress test on 04/13/19, who presents today with exertional chest pain. Our plans are for observation in the hospital for the followin. Chest pain: The patient's chest pain is concerning for possible unstable angina. His first troponin is mildly elevated at 0.04. A second troponin is due now. We discussed the case with Dr. Shine. Plans are to repeat this troponin now and if it is any higher at all we will plan to start heparin drip and perhaps load with Plavix. If the troponin is the same or lower, we will continue to cycle the troponins. The patient will be n.p.o., as there is a consideration for possible cardiac catheterization tomorrow. The patient will be seen by Dr. Wisdom in consultation to review this with him and his family. In the meantime the patient will be on telemetry. He will have aspirin daily. 2. Hypertension: Continue Altace. 3. Hyperlipidemia: Plan to hold his statin as he only takes it every other day and statins give him muscle cramps. If his troponin is rising we will have to consider whether or not starting his statin will be imperative for him. 4. Hypothyroidism: Continue with levothyroxine. 5. DVT prophylaxis: Heparin subcu. 6. Code status: Full code. TIME SPENT: Approximately 60 minutes were spent on the admission of this patient, more than half of that time was spent with the patient at the bedside reviewing the events leading up to this hospitalization, performing the physical examination, and reviewing my plan of care. BELKIS FINLEY, LENCHO [id number]/[facility] #: [id number] EVETTE
[2019-04-26 05:59] LABS: Troponin I 0.91 ng/mL (<0.04)
[2019-04-26] MEDS: Heparin VIAL(*) 5000 UNITS/ML VIAL (FIVE THOUSAND) SUBCUT SCH ×3 (06:09→21:52)
[2019-04-26 07:38] LABS: Troponin I 0.69 ng/mL (<0.04)
[2019-04-26] MEDS ORDERED: Diazepam TAB(*) 5 MG PO PRN (08:43)
[2019-04-26] MEDS ORDERED: diPHENhydraMINE PO* 25 MG PO PRN (08:43)
[2019-04-26] MEDS ORDERED: NS 0.9% 1000 ML** 1,000 ML IV SCH (08:45)
[2019-04-26] MEDS ORDERED: Ticagrelor* 90 MG TAB PO SCH (09:00)
[2019-04-26] MEDS ORDERED: Aspirin EC TAB* 81 MG TAB.EC PO SCH (09:00)
[2019-04-26] MEDS ORDERED: Multivitamins/Minerals TAB PO SCH (09:00)
[2019-04-26] MEDS ORDERED: Levothyroxine TAB* 100 MCG TAB PO SCH (09:00)
[2019-04-26] MEDS ORDERED: Ramipril CAP* 2.5 MG PO SCH (09:00)
[2019-04-26] MEDS ORDERED: VERAPAMIL 2.5 MG/ML 2 ML VIAL ** 5 mg/2 ml ONE (09:16)
[2019-04-26] MEDS ORDERED: nitroGLYCERIN DRIP* 25,000 MCG/250 ML BTL ONE (09:16)
[2019-04-26] MEDS ORDERED: Lidocaine 1% INJ* 10 MG/ML 30 ML SDV ONE (09:16)
[2019-04-26] MEDS ORDERED: Heparin(*) 1000 UNIT/ML 10 ML VIAL CATH LAB IV ONE (09:16)
[2019-04-26] MEDS ORDERED: Iohexol 350 (CONTRAST) 200 ML MDV IV ONE ×2 (09:17→09:18)
[2019-04-26] MEDS ORDERED: Heparin 2 UNITS/ML IVPREMIX* 3,000 UNIT/1,500 ML BAG IV ONE (09:18)
--- NOTE | 2019-04-26 10:04 | CONS ---
CC: Dr. Katina Simmons.* CARDIOLOGY CONSULTATION: DATE OF CONSULT: 04/26/19. INDICATION FOR CONSULTATION: NSTEMI, chest pain. 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 Patient was admitted to the hospital at the beginning of April with chest pain. At that time , a stress test and a CTA of the chest were unremarkable. On 04/25/19, patient was at the [facility], he was exercising, had been exercising about an hour when he started having chest pain, a sort of heaviness or fullness in the chest , radiated up into his jaw. He rated it about 5/10. He stopped exercising. He went home. On arrival at home, it was a little bit better, but not significantly better. He did take one of his 's nitroglycerin sublingual without any significant improvement in discomfort. At that time, they called 911. On arrival of the ambulance, he was pain free. Patient has been pain free since admission. His initial EKG showed normal sinus rhythm with nonspecific T- wave abnormalities. No significant EKG changes compared to his EKG on 04/09/19. Patient has been having symptoms of nausea that may or may not be related to these current anginal type symptoms. Patient was started on famotidine but that caused significant nausea and vomiting. He stopped that after 5 days. Patient is scheduled for an endoscopy tomorrow. Patient has never had any evidence of bleeding. No bright red blood per rectum. No melena. No vomiting with . PAST MEDICAL HISTORY: Significant for: 1. Diabetes. 2. Hypertension. 3. Hypothyroidism. 4. Gastroesophageal reflux disease. 5. Hyperlipidemia. OUTPATIENT MEDICATIONS: 1. Ramipril 2.5 mg a day. 2. Pravastatin 10 mg every other day. 3. Multivitamin a day. 4. Metformin 1000 mg b.i.d. 5. Glipizide 15 mg b.i.d. 6. Levothyroxine 100 mcg a day. 7. Aspirin 81 mg a day. ALLERGIES: To ATORVASTATIN, CRESTOR, LACTOSE, and PEPCID. SOCIAL HISTORY: He is a retired physician, lives with his . He denies tobacco or alcohol use. He exercises regularly. FAMILY HISTORY: His mother at 78 due to asthma. Father at 89 of a myocardial infarction. REVIEW OF SYSTEMS: Negative for fevers and chills. Positive for epigastric discomfort and nausea. Negative for change in weight. Negative for change in bowel or bladder. Other 12-point review is unremarkable. PHYSICAL EXAMINATION: Height is 5 feet 9 inches, weight is 149 pounds. Temperature 97.7, heart rate is 77, blood pressure 116/76, respiratory rate is 17, oxygen saturation 100% on room air. Sclerae anicteric. Oropharynx is pink without erythema. Carotids are 2+ without bruits. JVD is normal. Thyroid is normal. Cardiac Exam: S1, S2 without any murmurs, rubs, or gallops. Lungs are clear to auscultation bilaterally. There is no dullness to percussion. Abdomen is soft, nontender, nondistended. Normoactive bowel sounds. Extremities: Show no edema. He has 2+ pulses throughout. Patient is awake, alert, and oriented. He moves all 4 extremities equally. DIAGNOSTIC STUDIES/LAB DATA: Chemistries within normal limits. BUN 18, creatinine 0.8. AST and ALT are normal. Troponin: Peak troponin level is 0.91. CBC: White count is normal. Hemoglobin of 11, hematocrit 33, platelet count 216. Again, patient had a stress test on 04/13/19, which demonstrated normal perfusion throughout the myocardium. Normal LV function. Ejection fraction was calculated at 68%. CTA of the chest showed no evidence of pulmonary embolism, that was on 04/09/19. IMPRESSION: This is a 73-year-old gentleman with history of diabetes, hypertension who is admitted to the hospital with an NSTEMI, myocardial infarction. Patient has had no further chest pain since being in the hospital. The patient is on heparin, aspirin, beta-lyndsey, and low-dose statin therapy. For now, my recommendation is for the patient to undergo cardiac catheterization. The risks and benefits of this were described in great detail and patient is willing to proceed. Further recommendation pending the results of this catheterization. [id number]/[facility] #: [id number] MTDD
[2019-04-26] MEDS ORDERED: fentaNYL* 50 MCG/ML 2 ML VIAL (100 MCG VIAL) ONE (10:16)
[2019-04-26] MEDS ORDERED: Midazolam* 1 MG/ML 5 ML VIAL (5 MG) ONE (10:16)
[2019-04-26] MEDS ORDERED: Flumazenil* 0.1 MG/ML 5 ML MDV ONE (10:17)
[2019-04-26] MEDS ORDERED: Naloxone* 0.4 MG/ML 1 ML VIAL ONE (10:17)
[2019-04-26] MEDS: Insulin LISPRO* 1 UNITS UNIT SUBCUT SCH ×3 (10:25→17:52)
[2019-04-26] MEDS: Metoprolol Tartrate TAB* 25 MG PO SCH ×2 (14:59→20:10)
[2019-04-26] MEDS ORDERED: Metoprolol Tartrate TAB* 25 MG PO ONE (18:11)
--- NOTE | 2019-04-26 18:26 | CATH ---
CC: Dr. Katina Simmons; Dr. Carlos Bashir, [facility] * CARDIAC CATHETERIZATION: DATE OF PROCEDURE: 04/26/19 - ROOM #445 INDICATION FOR PROCEDURE: Non-STEMI, diabetes. The patient is a 73-year-old gentleman with history of diabetes, hyperlipidemia , who had an episode of severe chest pain radiating to the jaw yesterday just after exercising, it lasted for about 45 minutes and then slowly resolved. He came to the emergency room. The patient's peak troponin level was 0.91. Cardiac catheterization was recommended. DESCRIPTION OF PROCEDURE: The patient had a cardiac catheterization including a left heart catheterization, coronary angiography, left ventriculogram. The patient was placed supine on the procedure table. His right radial area was prepped and draped in the usual fashion. 1% lidocaine was used for local anesthesia. The radial artery was entered by a Seldinger technique and a guidewire was placed. Over the guidewire, a 6-[place] sheath introducer was placed. Through the sheath, an infusion of verapamil, nitroglycerin and heparin was given. The patient underwent the procedure using a 5-[place] TIG catheter, a 5-[place] JL3.5 catheter and a 5-[place] AR1 catheter, also a 5- [place] pigtail catheter was used for the left ventriculogram. At the end of the procedure, all sheaths and catheters were removed. The patient tolerated the procedure well with no complications. A total of 75 cc of Omnipaque dye was used. A total of 6.2 minutes of fluoro time was used. FINDINGS: Central aortic blood pressure 104/72 with a mean of 89, left ventricular pressure of 101/2 with an end diastolic pressure of 8. LEFT VENTRICULOGRAM: Left ventricle was normal in size and systolic function. Estimated ejection fraction 60%. There are no focal wall motional abnormalities. There is no mitral regurgitation. The aortic valve and ascending aorta were normal. CORONARY ARTERIES: Left main artery: The left main was normal in size. It bifurcated into the LAD and circumflex. There was no evidence of stenosis. Left anterior descending artery: The LAD was normal in size. It gave off 2 diagonal vessels. The proximal LAD had moderate calcification. The mid LAD at the first diagonal had a complex 90% stenosis involving both the LAD and the ostium of the diagonal vessel. The remainder of the LAD had no significant disease. The first diagonal vessel had a mid 60% stenosis. The vessel itself was a 2-mm vessel. Left circumflex artery: The circumflex artery was normal in size, it gave off 1 large branching obtuse marginal. The obtuse marginal itself had a trifurcation point. At that point, there was a complex 90% stenosis involving the distal original branch of the OM and all 3 subsequent branches of the OM. Right coronary artery: The RCA was a large dominant vessel, it gave off the PDA. The RCA itself had mild diffuse disease. The posterolateral branch #1 had an ostial 80% stenosis. Posterolateral branch #2 is without disease. The PDA itself had an ostial 90% stenosis. IMPRESSION: 1. Normal LV size and systolic function. 2. Complex 90% stenosis of the mid LAD involving D1 vessel. 3. Complex 90% stenosis of the obtuse marginal branch at its trifurcation point into 3 other obtuse marginal branches. 4. 90% ostial stenosis of the PDA. 5. 80% ostial stenosis of the first posterolateral branch. RECOMMENDATION: The patient will be evaluated for coronary artery bypass surgery at [facility]. [id number]/[facility] #: [id number] EVETTE
--- NOTE | 2019-04-26 23:36 | TRS ---
CC: Dr. Simmons; Dr. Wisdom; Dr. Bashir at [facility] TRANSFER SUMMARY: DATE OF ADMISSION: 04/25/19 DATE OF TRANSFER: 04/26/19 PRIMARY CARE PROVIDER: Dr. Simmons. CONSULTING PRODUCTION SUPPORT DEVELOPER: Dr. Wisdom. ACCEPTING CARDIOTHORACIC SURGEON: Dr. Bashir. DISCHARGE DIAGNOSIS: Non-ST elevation myocardial infarction, three-vessel coronary artery disease. SECONDARY DIAGNOSES: 1. Type 2 diabetes. 2. Hypertension. 3. Hypothyroidism. 4. Gastroesophageal reflux disease. 5. Hyperlipidemia. MEDICATIONS AT THE TIME OF TRANSFER: 1. Acetaminophen 650 mg p.o. q.6 hours p.r.n. fever. 2. Aspirin 81 mg p.o. daily. 3. Heparin 5000 units subcutaneously q.8 hours. 4. Levothyroxine 50 mcg daily at 6 a.m. 5. Metoprolol tartrate 12.5 mg p.o. q.12 hours. 6. Multivitamin 1 tab p.o. daily. 7. Pravastatin 10 mg p.o. every other day. 8. Ramipril 2.5 mg p.o. daily. 9. Normal saline at 100 mL an hour. 10. Lispro sliding scale. 11. Dextrose 12.5 g IV p.r.n. for glucose less than 60. HOSPITAL COURSE: Dr. Villasenor is a 73-year-old male with a past medical history as stated above who presented to [facility] initially on 04/09/19 with complaints of chest pain. His workup at that time included a negative CT of the chest. The patient had serial troponins that were negative and he had scheduled stress test as outpatient that he underwent on 04/13/19. The test showed no definite fixed or reversible perfusion defects and the calculated ejection fraction was 68%. The patient followed up with Dr. Norton as an outpatient as the impression was that his symptoms were related to GERD, and he was actually scheduled to have an endoscopy on 04/27/19. As he continued to have exertional chest pain that radiated to the left side into his neck, he came to the emergency room for further evaluation. His initial troponin was 0.04 and that peaked at 0.91. He was seen in consultation by Cardiology (Dr. Wisdom) and his recommendation was for a cardiac catheterization that revealed triple-vessel disease. Dr. Wisdom contacted Dr. Bashir who accepted the patient in transfer for evaluation for CABG. PHYSICAL EXAMINATION: Vital Signs: Temperature 97.3, heart rate 94, respiratory rate 14, oxygen saturation 97% on room air, blood pressure 114/84. General: The patient is a pleasant elderly gentleman, lying in bed, in no acute distress. HEENT: Neck shows no JVD. CVS: Normal S1, S2. Regular rate and rhythm. Chest: Breath sounds present bilaterally with no added sounds. Abdomen: Soft, nontender. Bowel sounds are present. Extremities: No edema. Neuro: He is alert and oriented x3. He is able to move all 4 extremities. DIET: Heart-healthy, consistent carb diet. ACTIVITIES: As tolerated. DISPOSITION: Transferred to [facility] for CABG. CONDITION AT THE TIME OF DISCHARGE: Guarded. STATUS WHILE IN THE HOSPITAL: Observation. Please keep in mind, this is a summarized version of this patient's hospital stay. If you need more information, please feel free to call me at [phone] or please obtain the full medical records. TIME SPENT: Approximately 50 minutes was spent to complete this discharge. [id number]/CPS #: [id number] [facility] CENTERHorace
[2019-04-27 04:19] VITALS: BP 117/78
[2019-04-27] MEDS ORDERED: Levothyroxine INJ* 100 MCG/5 ML VIAL IV SCH (06:00)
[2019-04-27] MEDS: Heparin VIAL(*) 5000 UNITS/ML VIAL (FIVE THOUSAND) SUBCUT SCH (07:08)
[2019-04-27] MEDS ORDERED: Insulin LISPRO* 1 UNITS UNIT SUBCUT SCH (07:30)
[2019-04-27] MEDS ORDERED: CMCS:Pravastatin (NF) 20 MG TAB PO SCH (09:00)
== END 2019-04-27 07:15 | disposition short-term general hospital (02) ==
LOC: ED 18:35 → MEDTELE 20:56
PROVIDERS: ADMIT Internal Medicine; ATTEND Internal Medicine
DX: I21.4 Non-ST elevation (NSTEMI) myocardial infarction (principal); I25.10 Atherosclerotic heart disease of native coronary artery without angina pectoris; E11.9 Type 2 diabetes mellitus without complications; I10 Essential (primary) hypertension; E03.9 Hypothyroidism, unspecified; K21.9 Gastro-esophageal reflux disease without esophagitis; E78.5 Hyperlipidemia, unspecified; Z79.82 Long term (current) use of aspirin; Z79.899 Other long term (current) drug therapy; R07.9 Chest pain, unspecified
CPT/HCPCS: 36415; 71045; 80053; 84484; 85025; 85610; 93005; 93458; 96361; 96372; 96374; 99156; 99157; 99285; A9270-GY; G0378; J1644; J2250; J2310; J3010